=== PATIENT | female | born 1970 | race African-American/Black ===

== ENCOUNTER 2016-10-21 13:50 | Inpatient (IN) | payer OTHER ==
[2016-10-21 15:03] VITALS: BMI 33.5
--- NOTE | 2016-10-21 17:30 | HP ---
Admission ROS [facility] - [facility] Chief Complaint: I WANT TO GO TO REHAB Allergies/Adverse Reactions: Allergies Allergy/AdvReac Type Severity Reaction Status Date / Time No Known Allergies Allergy Verified 10/21/16 15:53 History of Present Illness: 45 YEARS OLD FEMALE WITH LONG HISTORY OF HEROIN DEPENDENCE, HAS ASTHMA BIPOLAR HYPOTHYROID AND DIABETES II IS ADMITTED TO REHAB Exam Limitations: No Limitations - Ebola screening Have you traveled outside of the country in the last 21 days: No (N) Have you had contact with anyone from an Ebola affected area: No Have you been sick,other than usual withdrawal symptoms: No Do you have a fever: No - Review of Systems Constitutional: No Symptoms Reported EENT: reports: Other (EYE GLASSES) Respiratory: reports: Cough, SOB with Exertion, Other (ASTHMA ATTACK 10/20/16 TREATED AT [facility]) Cardiac: reports: No Symptoms Reported GI: reports: No Symptoms Reported : reports: No Symptoms Reported Musculoskeletal: reports: Back Pain Integumentary: reports: Lesions (HYPOPIGMENTED ON RIGHT GLUTEAL) Neuro: reports: No Symptoms reported Endocrine: reports: Unexplained Weight Gain Hematology: reports: No Symptoms Reported Psychiatric: reports: Judgement Intact, Orientated x3, Anxious, Depressed Other Systems: Reviewed and Negative Patient History - Patient Medical History Hx Anemia: No Hx Asthma: Yes (PT IS ON MDI) Hx Chronic Obstructive Pulmonary Disease (COPD): No Hx Cancer: No Hx Cardiac Disorders: Yes (cardiomyopathy) Hx Congestive Heart Failure: No Hx Hypertension: Yes (ON MEDS.) Hx Hypercholesterolemia: No Hx Pacemaker: No HX Cerebrovascular Accident: No Hx Seizures: No Hx Dementia: No Hx Diabetes: Yes (METFORMIN 500 MG BID) Hx Gastrointestinal Disorders: No Hx Liver Disease: No Hx Genitourinary Disorders: No Hx Sexually Transmitted Disorders: No Hx Renal Disease (ESRD): No Hx Thyroid Disease: Yes (hypothyroidism; synthroid ) Hx Human Immunodeficiency Virus (HIV): No (2012 last tested) Hx Hepatitis C: No Hx Depression: No (AND ANXIETY) Hx Suicide Attempt: No Hx Bipolar Disorder: Yes Hx Schizophrenia: No - Patient Surgical History Past Surgical History: Yes Hx Neurologic Surgery: No Hx Cataract Extraction: No Hx Cardiac Surgery: No Hx Lung Surgery: No Hx Breast Surgery: No Hx Breast Biopsy: No Hx Abdominal Surgery: No Hx Appendectomy: No Hx Cholecystectomy: No Hx Genitourinary Surgery: No Hx Section: Yes (x 3) Hx Orthopedic Surgery: No Hx Hysterectomy: No Anesthesia Reaction: No - PPD History Previous Implant?: Yes Documented Results: Negative w/o proof Implanted On Prior [facility] Admission?: Yes Date: 05/31/15 Results: 0 MM PPD to be Administered?: Yes - Reproductive History Patient is a Female of Child Bearing Age (11 -55 yrs old): Yes Last Menstrual Period: 06/16/16 Patient : No - Smoking Cessation Smoking history: Never smoked Have you smoked in the past 12 months: No Aproximately how many cigarettes per day: 0 If you are a former smoker, when did you quit?: WHEN SHE WAS 14 YRS. OLD Hx Chewing Tobacco Use: No Initiated information on smoking cessation: No - Substance & Tx. History Hx Alcohol Use: No Hx Substance Use: Yes Substance Use Type: Heroin Hx Substance Use Treatment: Yes - Substances Abused Heroin Route: Inhalation Frequency: 1-2 times per week Amount used: 1 BAG Age of first use: 11 Date of Last Use: 10/18/16 Family Disease History - Family Disease History Family Disease History: Respiratory: Father (ALCOHOL IN REMISSION X 30 YRS.), Other: Father Admission Physical Exam S - Vital Signs Vital Signs: Vital Signs - 24 hr 10/21/16 14:59 Temperature 98.2 F Pulse Rate 110 H Respiratory 20 Rate Blood Pressure 120/99 - Physical General Appearance: Yes: No Apparent Distress, Nourished, Appropriately Dressed HEENTM: Yes: Hearing grossly Normal, Normal ENT Inspection, Normocephalic, Normal Voice Respiratory: Yes: Chest Non-Tender, Labored Respiration, No Respiratory Distress , No Accessory Muscle Use, Rhonchi, Wheezing Neck: Yes: Supple, Trachea in good position Breast: Yes: Breasts Symetrical Cardiology: Yes: Regular Rhythm, S1, S2, Tachycardia, Other (CARDIOMYOPATHY) Abdominal: Yes: Non Tender, Soft Genitourinary: Yes: Within Normal Limits Back: Yes: Normal Inspection Musculoskeletal: Yes: full range of Motion, Gait Steady, Back pain Extremities: Yes: Normal Inspection, Normal Range of Motion, Non-Tender Neurological: Yes: Fully Oriented, Alert, Motor Strength 5/5, Normal Mood/Affect , Normal Response Integumentary: Yes: Normal Color, Warm Lymphatic: Yes: Within Normal Limits - Diagnostic (1) Asthma Current Visit: Yes Status: Acute (2) Bipolar II disorder Current Visit: Yes Status: Suspected (3) Essential hypertension Current Visit: Yes Status: Acute Comment: HCTZ 25 MG (4) Opioid dependence with withdrawal Current Visit: Yes Status: Acute (5) Diabetes mellitus type II, non insulin dependent Current Visit: Yes Status: Acute Comment: METFORMIN 500 MG BID (6) Sciatic leg pain Current Visit: Yes Status: Acute Comment: GABAPENTIN 300 MG TID Cleared for Admission [facility] - Detox or Rehab [facility] Level of Care: Observation Bed Claeared for Rehab Admission: Yes [facility] Breath Alcohol Content Breath Alcohol Content: 0 Urine Pregancy Test - Result Urine Test Results: Negative- NO Line Present Urine Drug Screen - Results Drug Screen Negative: No Urine Drug Screen Results: OPI-Opiates, TCA-Tricyclic Antidepress
[2016-10-21] MEDS ORDERED: ACETAMINOPHEN 325 MG TABLET (FP) PO PRN (17:33)
[2016-10-21] MEDS ORDERED: MENTHOL/PHENOL 1 EACH UD MM PRN (17:33)
[2016-10-21] MEDS ORDERED: MAG HYDROX/AL HYDROX/SIMETH 30 ML UNIT-DOSE CUP PO PRN (17:33)
[2016-10-21] MEDS ORDERED: LOPERAMIDE HCL 2 MG CAPSULE PO PRN (17:33)
[2016-10-21] MEDS ORDERED: P-EPHED 60MG/TRIPROLIDI 2.5MG TABLET PO PRN (17:33)
[2016-10-21] MEDS ORDERED: MAGNESIUM CITRATE 300 ML BOTTLE PO PRN (17:33)
[2016-10-21] MEDS ORDERED: guaiFENesin/D-METHORPHAN HB 10 ML UNIT-DOSE CUPS PO PRN (17:33)
[2016-10-21] MEDS ORDERED: MAGNESIUM HYDROX 2400MG/30ML ORAL SUSPENSION 30 ML CUP PO PRN (17:33)
[2016-10-21] MEDS ORDERED: diphenhydrAMINE HCL 50 MG CAPSULE PO PRN (17:33)
[2016-10-21] MEDS ORDERED: ALBUTEROL SO4 2.5/IPRATROPIUM 0.5 INH SOL 3 ML VIAL.NEB. NEB PRN (17:37)
[2016-10-21] MEDS ORDERED: TUBERCULIN PPD 5 TU/0.1ML VIAL ID ONE (18:00)
[2016-10-21] MEDS: predniSONE 20 MG TABLET (UD) PO SCH (19:17)
[2016-10-21] MEDS: ALBUTEROL SO4 6.7 GM HFA INHALER IH PRN (19:31)
[2016-10-21 20:11] LABS: URINE APPEARANCE CLEAR; URINE BILIRUBIN NEGATIVE (NEGATIVE); URINE BLOOD NEGATIVE (NEGATIVE); URINE COLOR YELLOW; URINE GLUCOSE (UA) 1+ (NEGATIVE); URINE KETONE NEGATIVE (NEGATIVE); URINE LEUK ESTERASE NEGATIVE (NEGATIVE); URINE NITRITE NEGATIVE (NEGATIVE); URINE PROTEIN NEGATIVE (NEGATIVE); URINE UROBILINOGEN NEGATIVE E.U./dl (0.2-1.0)
[2016-10-21] MEDS: buPROPion HCL 75 MG TABLET PO SCH (20:58)
[2016-10-21] MEDS: THIAMINE HCL 100 MG TABLET (FP) PO SCH (21:41)
[2016-10-21] MEDS: RANOLAZINE E.R. 500 MG TABLET (FP) PO SCH (21:41)
[2016-10-21] MEDS: traZODone HCL 100 MG TABLET (FP) PO SCH (21:42)
[2016-10-21] MEDS: busPIRone HCL 10 MG TABLET (FP) PO SCH (21:43)
[2016-10-21] MEDS: GABAPENTIN 300 MG CAPSULE (FP) PO SCH (21:44)
[2016-10-21] MEDS: OMEGA-3 ACID ETHYL ESTERS (FATTY-ACIDS) 1 GM CAPSULE (FP) PO SCH (21:44)
[2016-10-22] MEDS ORDERED: LEVOTHYROXINE NA 25 MCG TABLET (FP) ONE (05:53)
[2016-10-22] MEDS ORDERED: LEVOTHYROXINE NA 100 MCG TABLET (FP) ONE (05:53)
[2016-10-22] MEDS: busPIRone HCL 10 MG TABLET (FP) PO SCH ×3 (06:35→21:28)
[2016-10-22] MEDS: GABAPENTIN 300 MG CAPSULE (FP) PO SCH ×3 (06:35→21:28)
[2016-10-22] MEDS: LEVOTHYROXINE 100 MCG, LEVOTHYROXINE 50 MCG PO SCH (06:35)
--- NOTE | 2016-10-22 06:44 | HP ---
Psychiatrist Admission - Data Date of interview: 10/22/16 Admission source: [facility] Identifying data: This is the the third [facility] admission for this 45 years old single Black female, mother of 4 children, unemployed on public assistance, homeless Medical History: Significant for history of Asthma, HTN, DM, Hypothyroidism, Cardiomyopathy, Sciatica and S/P x3 Psychiatric History: Reports that her first psychiatric contact was in the 's while at [facility] for rehab. She was prescribed Zoloft which she took for a few months for depression. In 2000 following the of her youndest sister to brain cancer, she saw a private psychiatrist in the [place], was prescribed medication for depression and took it for less than a year. Later on, she saw a psychiatrist at [place] and was prescribed Lexapro and a sleeping pill which she took for 2 years. After completing rehab on [facility] in March 2014, she was referred to [facility]. There because of a pattern of mmod swing with predominantly depression, she was diagnosed with Bipolar II Disorder and prescribed medications. She is still attending [facility] with Dr Lerner and she is currently on Wellbutrin 150 mg po BID, Buspar 10 mg po TID, Lamictal 75 mg po daily, Seroquel 50 mg daily & 300 mg HS and Trazadone 200 mg po HS. Denies history of previous psychiatric hospitalization or suicidal attempt Physical/Sexual Abuse/Trauma History: Reports no history of physical or sexual abuse, and no history of domestic violence. Identifies sister's , god- brother's (jumped in the river to save a baby) last summer, and a cousin' s three weeks ago shoveling snow, as traumatic loses. Additional Comment: Reports history of multiple arrests including 2 felony convictions. Reports being on probation 2018 Vital Signs: Vital Signs - 24 hr 10/21/16 10/22/16 10/22/16 14:59 00:30 03:30 Temperature 98.2 F Pulse Rate 110 H Respiratory 20 20 18 Rate Blood Pressure 120/99 Allergies/Adverse Reactions: Allergies Allergy/AdvReac Type Severity Reaction Status Date / Time No Known Allergies Allergy Verified 10/21/16 15:53 Date of last physical exam: 10/21/16 Concur with the findings of this exam: Yes - Substance Abuse/Tx History Hx Alcohol Use: No Hx Substance Use: Yes Substance Use Type: Heroin (Sttarted using heroin at age 11, consumes one bag 1- 2 times weekly. Last used on 10/18/16) Hx Substance Use Treatment: Yes (Multiple inpt detox & 2 inpt rehab @ [facility]) - Admission Criteria Previous failed treatment: No Poor recovery environment: Yes Comorbidities: Yes Lacks judgement: Yes Mental Status Exam - Mental Status Exam Alert and Oriented to: Time, Place, Person Cognitive Function: Fair Patient Appearance: Well Groomed Mood: Hopeful, Euthymic Patient Behavior: Cooperative Speech Pattern: Clear Voice Loudness: Normal Thought Process: Intact Thought Disorder: Not Present Hallucinations: Denies Suicidal Ideation: Denies, Past, Plan Homicidal Ideation: Denies Insight/Judgement: Fair Sleep: Fair Appetite: Good Muscle strength/Tone: Normal Gait/Station: Normal Psychiatric Findings - Problem List ([place] 1, 2,3) (1) Opioid dependence with withdrawal Current Visit: Yes Status: Acute (2) Bipolar II disorder Current Visit: Yes Status: Suspected (3) Asthma Current Visit: Yes Status: Acute (4) Diabetes mellitus type II, non insulin dependent Current Visit: Yes Status: Acute Comment: METFORMIN 500 MG BID (5) Essential hypertension Current Visit: Yes Status: Acute Comment: HCTZ 25 MG (6) Sciatic leg pain Current Visit: Yes Status: Acute Comment: GABAPENTIN 300 MG TID (7) Hypothyroid Current Visit: No Status: Chronic - Initial Treatment Plan Initial Treatment Plan: 1) Continue Wellbytrin XL 300 mg po daily, Lamictal 75 mg po daily, Buspar 10 mg po TID, Seroquel 50 mg daily & 300 mg HS and Trazadone 200 mg po HS. 2) Monitor progress
[2016-10-22] MEDS ORDERED: LEVOTHYROXINE NA 150 MCG TABLET PO SCH (07:00)
[2016-10-22] MEDS: metFORMIN HCL 500 MG TABLET (FP) PO SCH ×2 (07:41→16:49)
[2016-10-22] MEDS: buPROPion HCL 75 MG TABLET PO SCH (08:03)
[2016-10-22] MEDS: ASPIRIN 81 MG CHEWABLE TABLETS PO SCH (10:01)
[2016-10-22] MEDS: PRENATAL VITAMINS W/ FOLIC ACID TABLET (FP) PO SCH (10:01)
[2016-10-22] MEDS: QUEtiapine FUMARATE 50 MG TABLET PO SCH (10:01)
[2016-10-22] MEDS: predniSONE 20 MG TABLET (UD) PO SCH (10:01)
[2016-10-22] MEDS: HYDROCHLOROTHIAZIDE 25 MG TABLET (FP) PO SCH (10:01)
[2016-10-22] MEDS: OMEGA-3 ACID ETHYL ESTERS (FATTY-ACIDS) 1 GM CAPSULE (FP) PO SCH ×2 (10:02→21:29)
[2016-10-22] MEDS: lamoTRIgine 25 MG TABLET PO SCH (10:19)
[2016-10-22] MEDS: RANOLAZINE E.R. 500 MG TABLET (FP) PO SCH ×2 (10:20→21:29)
[2016-10-22 10:28] LABS: ALK PHOS 101 U/L (45-117); ANION GAP 6 (8-16); BILIRUBIN,TOTAL 0.3 mg/dL (0.2-1.0); CALCIUM 9.2 mg/dL (8.5-10.1); CO2 30 mmol/L (21-32); CREATININE 0.9 mg/dL (0.55-1.02); GLUCOSE,RANDOM 107 mg/dL (74-106); SGOT/AST 27 U/L (15-37); SGPT/ALT 30 U/L (12-78); TOT PROT 7.8 g/dl (6.4-8.2)
[2016-10-22 10:56] LABS: HIV 1 & 2 AB NEGATIVE; HIV 1 AGp24 NEGATIVE
[2016-10-22 11:09] LABS: MCH 28.4 pg (25.7-33.7); MCHC 31.7 g/dl (32.0-36.0); MEAN CELL VOLUME 89.7 fl (80-96); MEAN PLT VOLUME 8.3 fl (7.5-11.1); PLATELET COUNT 287 K/MM3 (134-434); RDW 14.5 % (11.6-15.6); WHITE BLOOD COUNT 14.4 K/mm3 (4.0-10.0)
[2016-10-22] MEDS ORDERED: PT OWN MED DRAWER 7, Y5N ONE (13:17)
[2016-10-22] MEDS ORDERED: busPIRone HCL 10 MG TABLET (FP) PO SCH (14:00)
[2016-10-22] MEDS: FLUTICASONE IN SCH ×2 (16:49→21:27)
[2016-10-22] MEDS: SALMETEROL IN SCH ×2 (16:49→21:27)
[2016-10-22] MEDS: traZODone HCL 100 MG TABLET (FP) PO SCH (21:28)
[2016-10-22] MEDS: THIAMINE HCL 100 MG TABLET (FP) PO SCH (21:28)
[2016-10-22] MEDS ORDERED: traZODone HCL 100 MG TABLET (FP) PO SCH (22:00)
[2016-10-22] MEDS ORDERED: QUEtiapine FUMARATE 300 MG TABLET PO SCH (22:00)
[2016-10-23] MEDS ORDERED: LEVOTHYROXINE NA 25 MCG TABLET (FP) ONE (03:36)
[2016-10-23] MEDS ORDERED: LEVOTHYROXINE NA 100 MCG TABLET (FP) ONE (03:37)
[2016-10-23] MEDS: LEVOTHYROXINE 100 MCG, LEVOTHYROXINE 50 MCG PO SCH (06:41)
[2016-10-23] MEDS: busPIRone HCL 10 MG TABLET (FP) PO SCH ×3 (06:41→21:35)
[2016-10-23] MEDS: GABAPENTIN 300 MG CAPSULE (FP) PO SCH ×3 (06:41→21:36)
[2016-10-23] MEDS: metFORMIN HCL 500 MG TABLET (FP) PO SCH ×2 (07:38→16:56)
[2016-10-23] MEDS ORDERED: QUEtiapine FUMARATE 50 MG TABLET PO SCH (10:00)
[2016-10-23] MEDS ORDERED: lamoTRIgine 25 MG TABLET PO SCH (10:00)
--- NOTE | 2016-10-23 10:34 | EKG ---
Test Reason : Blood Pressure : / mmHG Vent. Rate : 088 BPM Atrial Rate : 088 BPM P-R Int : 192 ms QRS Dur : 094 ms QT Int : 370 ms P-R-T Axes : 072 026 029 degrees QTc Int : 447 ms NORMAL SINUS RHYTHM INCOMPLETE RIGHT BUNDLE BRANCH BLOCK NONSPECIFIC T WAVE ABNORMALITY ABNORMAL ECG WHEN COMPARED WITH ECG OF 12-NOV-2003 00:38, NONSPECIFIC T WAVE ABNORMALITY, IMPROVED IN ANTERIOR LEADS Confirmed by DOE SINGH, RUI ([id number]) on 10/23/2016 10:34:13 AM Referred By: Nevin Rodrigez Confirmed By:RUI AZAR MD
[2016-10-23] MEDS: RANOLAZINE E.R. 500 MG TABLET (FP) PO SCH ×2 (10:39→21:36)
[2016-10-23] MEDS: OMEGA-3 ACID ETHYL ESTERS (FATTY-ACIDS) 1 GM CAPSULE (FP) PO SCH ×2 (10:39→21:37)
[2016-10-23] MEDS: PRENATAL VITAMINS W/ FOLIC ACID TABLET (FP) PO SCH (10:39)
[2016-10-23] MEDS: ASPIRIN 81 MG CHEWABLE TABLETS PO SCH (10:40)
[2016-10-23] MEDS: QUEtiapine FUMARATE 50 MG TABLET PO SCH (10:40)
[2016-10-23] MEDS: lamoTRIgine 25 MG TABLET PO SCH (10:40)
[2016-10-23] MEDS: predniSONE 20 MG TABLET (UD) PO SCH (10:40)
[2016-10-23] MEDS: HYDROCHLOROTHIAZIDE 25 MG TABLET (FP) PO SCH (10:40)
[2016-10-23] MEDS: SALMETEROL IN SCH ×2 (10:41→21:37)
[2016-10-23] MEDS: FLUTICASONE IN SCH ×2 (10:41→21:37)
[2016-10-23] MEDS: THIAMINE HCL 100 MG TABLET (FP) PO SCH (21:36)
[2016-10-23] MEDS: traZODone HCL 100 MG TABLET (FP) PO SCH (21:36)
[2016-10-24] MEDS ORDERED: LEVOTHYROXINE NA 25 MCG TABLET (FP) ONE (03:50)
[2016-10-24] MEDS ORDERED: LEVOTHYROXINE NA 100 MCG TABLET (FP) ONE (03:50)
[2016-10-24] MEDS: busPIRone HCL 10 MG TABLET (FP) PO SCH ×3 (06:19→21:10)
[2016-10-24] MEDS: LEVOTHYROXINE 100 MCG, LEVOTHYROXINE 50 MCG PO SCH (06:19)
[2016-10-24] MEDS: GABAPENTIN 300 MG CAPSULE (FP) PO SCH ×3 (06:19→21:11)
[2016-10-24] MEDS: metFORMIN HCL 500 MG TABLET (FP) PO SCH ×2 (07:28→16:53)
[2016-10-24] MEDS: PRENATAL VITAMINS W/ FOLIC ACID TABLET (FP) PO SCH (10:21)
[2016-10-24] MEDS: QUEtiapine FUMARATE 50 MG TABLET PO SCH (10:21)
[2016-10-24] MEDS: lamoTRIgine 25 MG TABLET PO SCH (10:21)
[2016-10-24] MEDS: SALMETEROL IN SCH ×2 (10:22→21:11)
[2016-10-24] MEDS: FLUTICASONE IN SCH ×2 (10:22→21:11)
[2016-10-24] MEDS: RANOLAZINE E.R. 500 MG TABLET (FP) PO SCH ×2 (10:23→21:11)
[2016-10-24] MEDS: predniSONE 20 MG TABLET (UD) PO SCH (10:23)
[2016-10-24] MEDS: ASPIRIN 81 MG CHEWABLE TABLETS PO SCH (10:23)
[2016-10-24] MEDS: HYDROCHLOROTHIAZIDE 25 MG TABLET (FP) PO SCH (10:23)
[2016-10-24] MEDS: OMEGA-3 ACID ETHYL ESTERS (FATTY-ACIDS) 1 GM CAPSULE (FP) PO SCH ×2 (10:24→21:11)
[2016-10-24] MEDS: THIAMINE HCL 100 MG TABLET (FP) PO SCH (21:10)
[2016-10-24] MEDS: traZODone HCL 100 MG TABLET (FP) PO SCH (21:10)
[2016-10-25] MEDS ORDERED: LEVOTHYROXINE NA 25 MCG TABLET (FP) ONE (05:07)
[2016-10-25] MEDS ORDERED: LEVOTHYROXINE NA 100 MCG TABLET (FP) ONE (05:08)
[2016-10-25] MEDS: LEVOTHYROXINE 100 MCG, LEVOTHYROXINE 50 MCG PO SCH (06:54)
[2016-10-25] MEDS: busPIRone HCL 10 MG TABLET (FP) PO SCH (06:54)
[2016-10-25] MEDS: GABAPENTIN 300 MG CAPSULE (FP) PO SCH ×3 (06:55→21:17)
[2016-10-25] MEDS: metFORMIN HCL 500 MG TABLET (FP) PO SCH ×3 (06:55→17:02)
[2016-10-25] MEDS: HYDROCHLOROTHIAZIDE 25 MG TABLET (FP) PO SCH (09:48)
[2016-10-25] MEDS: PRENATAL VITAMINS W/ FOLIC ACID TABLET (FP) PO SCH (09:48)
[2016-10-25] MEDS: QUEtiapine FUMARATE 50 MG TABLET PO SCH (09:48)
[2016-10-25] MEDS: lamoTRIgine 25 MG TABLET PO SCH (09:49)
[2016-10-25] MEDS: ASPIRIN 81 MG CHEWABLE TABLETS PO SCH (09:49)
[2016-10-25] MEDS: OMEGA-3 ACID ETHYL ESTERS (FATTY-ACIDS) 1 GM CAPSULE (FP) PO SCH ×2 (09:49→21:16)
[2016-10-25] MEDS: SALMETEROL IN SCH ×2 (09:50→21:15)
[2016-10-25] MEDS: FLUTICASONE IN SCH ×2 (09:50→21:15)
[2016-10-25] MEDS: RANOLAZINE E.R. 500 MG TABLET (FP) PO SCH ×2 (09:50→21:16)
[2016-10-25] MEDS: predniSONE 20 MG TABLET (UD) PO SCH (10:01)
[2016-10-25] MEDS: hydrOXYzine PAMOATE 50 MG CAPSULE (FP) PO PRN ×2 (14:17→19:31)
--- NOTE | 2016-10-25 14:41 | PN ---
Psychiatric Progress Note Vital Signs: Vital Signs Period Temp Pulse Resp BP Sys/Hunter Pulse Ox Last 24 Hr 98.8 F 93-99 18-18 109-110/71-73 Date of Session: 10/25/16 Chief Complaint:: Anxiety HPI: Patient addressing Opoid Dependence comorbid with Bipolar II Disorder ROS: Asthma, DM, HTN, Hypothyroid, Sciatica Current Medications: Active Medications Generic Name Dose Route Start Last Admin Trade Name Freq PRN Reason Stop Dose Admin Acetaminophen 650 mg 10/21/16 17:33 Tylenol - PO Q4H PRN PAIN Al Hydroxide/Mg Hydroxide 30 ml 10/21/16 17:33 Mylanta Oral Suspension - PO Q6H PRN DYSPEPSIA Albuterol Sulfate 2 puff 10/21/16 17:37 10/21/16 19:31 Ventolin Hfa Inhaler - IH 2 puff Q4H PRN Administration SHORT OF BREATH/WHEEZING Albuterol/Ipratropium 1 amp 10/21/16 17:37 Duoneb - NEB Q6H PRN SHORTNESS OF BREATH Aspirin 81 mg 10/22/16 10:00 10/25/16 09:49 Asa - PO 81 mg DAILY ERUM Administration Bupropion HCl 300 mg 10/23/16 10:00 10/25/16 09:48 Wellbutrin Xl - PO 300 mg DAILY ERUM Administration Buspirone HCl 15 mg 10/25/16 14:00 10/25/16 14:16 Buspar - PO 15 mg TID ERUM Administration Diphenhydramine HCl 50 mg 10/21/16 17:33 Benadryl - PO HSMR1 PRN INSOMNIA Eucalyptus/Menthol/Phenol/Sorbitol 1 each 10/21/16 17:33 Cepastat Lozenge - MM Q4H PRN SORE THROAT Gabapentin 300 mg 10/21/16 22:00 10/25/16 14:16 Neurontin - PO 300 mg TID ERUM Administration Guaifenesin 10 ml 10/21/16 17:33 Robitussin Dm - PO Q6H PRN COUGH Hydrochlorothiazide 25 mg 10/22/16 10:00 10/25/16 09:48 Hctz - PO 25 mg DAILY ERUM Administration Hydroxyzine Pamoate 50 mg 10/21/16 17:33 10/25/16 14:17 Vistaril - PO 50 mg Q4H PRN Administration AGITATION Lamotrigine 75 mg 10/22/16 10:00 10/25/16 09:49 Lamictal - PO 75 mg DAILY ERUM Administration Levothyroxine Sodium 100 mcg/ 150 mcg 10/22/16 07:00 10/25/16 06:54 Levothyroxine Sodium 50 mcg PO 150 mcg DAILY@0700 ERUM Administration Loperamide HCl 4 mg 10/21/16 17:33 Imodium - PO Q6H PRN DIARRHEA Magnesium Citrate 300 ml 10/21/16 17:33 Citroma - PO Q48H PRN CONSTIPATION Magnesium Hydroxide 30 ml 10/21/16 17:33 Milk Of Magnesia - PO DAILY PRN CONSTIPATION Metformin HCl 500 mg 10/22/16 07:00 10/25/16 06:55 Glucophage - PO 500 mg BID@0700,1630 ERUM Administration Patient's Own 1 puff 10/21/16 22:00 10/25/16 09:50 Medication (Non- IN Not Given Formulary) ( BID ERUM Fluticasone/ Salmeterol [Advair] 115/21 [id number] Ethyl Esters 2 gm 10/21/16 22:00 10/25/16 09:49 Lovaza - PO 2 gm BID ERUM Administration Prednisone 40 mg 10/21/16 18:15 10/25/16 10:01 Deltasone - PO 10/25/16 18:14 40 mg DAILY ERUM Administration Multivit/Folic Acid/Iron 1 tab 10/22/16 10:00 10/25/16 09:48 Vitamins (Sjr) - PO 1 tab DAILY ERUM Administration Pseudoephedrine/Triprolidine 1 combo 10/21/16 17:33 Actifed - PO TID PRN NASAL CONGESTION Quetiapine Fumarate 300 mg 10/21/16 20:30 10/24/16 22:51 Seroquel Xr - PO 300 mg HS@2000 ERUM Administration Quetiapine Fumarate 50 mg 10/22/16 10:00 10/25/16 09:48 Seroquel - PO 50 mg DAILY ERUM Administration Ranolazine 500 mg 10/21/16 22:00 10/25/16 09:50 Ranexa - PO 500 mg BID ERUM Administration Thiamine HCl 100 mg 10/21/16 22:00 10/24/16 21:10 Vitamin B1 - PO 100 mg HS ERUM Administration Trazodone HCl 200 mg 10/21/16 22:00 10/24/16 21:10 Desyrel - PO 200 mg HS ERUM Administration Medication(s) Change(s): Increase Buspar 15 mg po TID Current Side Effect: No Lab tests ordered: No Lab tests reviewed: Yes Provider note:: Patient reports that she has been feeling anxious despite being on Buspar 10 mg po TID, Seroquel 50 mg daily & 300 mg HS, Trazadone 200 mg po HS in addition to Wellbutrin XL 300 mg po daily and Lamictal 75 mg po daily. She requests to increase Buspar dosage to 15 mg po TID Total face to face time:: 25 Mental Status Exam - Mental Status Exam Alert and Oriented to: Time, Place, Person Cognitive Function: Fair Patient Appearance: Well Groomed Mood: Anxious Affect: Appropriate Patient Behavior: Cooperative Speech Pattern: Clear Voice Loudness: Normal Thought Process: Intact Thought Disorder: Not Present Hallucinations: Denies Suicidal Ideation: Denies Homicidal Ideation: Denies Insight/Judgement: Fair Sleep: Fair Appetite: Good Muscle strength/Tone: Normal Gait/Station: Normal Psychiatric Treatment Plan - Problem List (1) Opioid dependence with withdrawal Current Visit: Yes (2) Bipolar II disorder Current Visit: Yes (3) Asthma Current Visit: Yes (4) Diabetes mellitus type II, non insulin dependent Current Visit: Yes Comment: METFORMIN 500 MG BID (5) Essential hypertension Current Visit: Yes Comment: HCTZ 25 MG (6) Sciatic leg pain Current Visit: Yes Comment: GABAPENTIN 300 MG TID (7) Hypothyroid Current Visit: No Initial treatment plan: 1) Discontinue Buspar 10 mg po TID. 2) Start Buspar 15 mg po TID. 3) Monitor progress
[2016-10-25] MEDS ORDERED: INSULIN (NOVOLOG) ASPART 100 UNITS/ML 10ML VIAL SQ ONE (17:25)
[2016-10-25] MEDS ORDERED: INSULIN (NOVOLOG) ASPART 100 UNITS/ML 10ML VIAL ONE (17:40)
[2016-10-25] MEDS: traZODone HCL 100 MG TABLET (FP) PO SCH (21:16)
[2016-10-25] MEDS: THIAMINE HCL 100 MG TABLET (FP) PO SCH (21:17)
[2016-10-26] MEDS ORDERED: LEVOTHYROXINE NA 25 MCG TABLET (FP) ONE (04:11)
[2016-10-26] MEDS ORDERED: LEVOTHYROXINE NA 100 MCG TABLET (FP) ONE (04:11)
[2016-10-26] MEDS: GABAPENTIN 300 MG CAPSULE (FP) PO SCH ×2 (06:18→14:08)
[2016-10-26] MEDS: LEVOTHYROXINE 100 MCG, LEVOTHYROXINE 50 MCG PO SCH (06:18)
[2016-10-26] MEDS: hydrOXYzine PAMOATE 50 MG CAPSULE (FP) PO PRN ×2 (06:39→14:08)
[2016-10-26] MEDS: metFORMIN HCL 500 MG TABLET (FP) PO SCH ×2 (07:20→21:31)
[2016-10-26] MEDS: lamoTRIgine 25 MG TABLET PO SCH (09:48)
[2016-10-26] MEDS: PRENATAL VITAMINS W/ FOLIC ACID TABLET (FP) PO SCH (09:48)
[2016-10-26] MEDS: RANOLAZINE E.R. 500 MG TABLET (FP) PO SCH ×2 (09:48→21:30)
[2016-10-26] MEDS: ASPIRIN 81 MG CHEWABLE TABLETS PO SCH (09:48)
[2016-10-26] MEDS: QUEtiapine FUMARATE 50 MG TABLET PO SCH (09:48)
[2016-10-26] MEDS: FLUTICASONE IN SCH ×2 (09:49→21:29)
[2016-10-26] MEDS: OMEGA-3 ACID ETHYL ESTERS (FATTY-ACIDS) 1 GM CAPSULE (FP) PO SCH ×2 (09:49→21:29)
[2016-10-26] MEDS: SALMETEROL IN SCH ×2 (09:49→21:29)
[2016-10-26] MEDS: HYDROCHLOROTHIAZIDE 25 MG TABLET (FP) PO SCH (09:49)
[2016-10-26] MEDS: traZODone HCL 100 MG TABLET (FP) PO SCH (21:29)
[2016-10-26] MEDS: GABAPENTIN 400 MG CAPSULE (FP) PO SCH (21:30)
[2016-10-26] MEDS: THIAMINE HCL 100 MG TABLET (FP) PO SCH (21:31)
[2016-10-27] MEDS ORDERED: LEVOTHYROXINE NA 100 MCG TABLET (FP) ONE (06:04)
[2016-10-27] MEDS ORDERED: LEVOTHYROXINE NA 25 MCG TABLET (FP) ONE (06:04)
[2016-10-27] MEDS: GABAPENTIN 400 MG CAPSULE (FP) PO SCH ×3 (06:11→21:06)
[2016-10-27] MEDS: LEVOTHYROXINE 100 MCG, LEVOTHYROXINE 50 MCG PO SCH (06:11)
[2016-10-27] MEDS: metFORMIN HCL 500 MG TABLET (FP) PO SCH ×2 (07:22→16:55)
[2016-10-27] MEDS: hydrOXYzine PAMOATE 50 MG CAPSULE (FP) PO PRN ×2 (08:49→13:59)
[2016-10-27] MEDS: PRENATAL VITAMINS W/ FOLIC ACID TABLET (FP) PO SCH (09:51)
[2016-10-27] MEDS: ASPIRIN 81 MG CHEWABLE TABLETS PO SCH (09:51)
[2016-10-27] MEDS: QUEtiapine FUMARATE 50 MG TABLET PO SCH (09:51)
[2016-10-27] MEDS: HYDROCHLOROTHIAZIDE 25 MG TABLET (FP) PO SCH (09:51)
[2016-10-27] MEDS: lamoTRIgine 25 MG TABLET PO SCH (09:52)
[2016-10-27] MEDS: OMEGA-3 ACID ETHYL ESTERS (FATTY-ACIDS) 1 GM CAPSULE (FP) PO SCH ×2 (09:54→21:08)
[2016-10-27] MEDS: RANOLAZINE E.R. 500 MG TABLET (FP) PO SCH ×2 (09:55→21:06)
[2016-10-27] MEDS: SALMETEROL IN SCH ×2 (09:55→21:07)
[2016-10-27] MEDS: FLUTICASONE IN SCH ×2 (09:55→21:07)
[2016-10-27] MEDS: THIAMINE HCL 100 MG TABLET (FP) PO SCH (21:06)
[2016-10-27] MEDS: traZODone HCL 100 MG TABLET (FP) PO SCH (21:06)
[2016-10-28] MEDS: LEVOTHYROXINE 100 MCG, LEVOTHYROXINE 50 MCG PO SCH (06:20)
[2016-10-28] MEDS: GABAPENTIN 400 MG CAPSULE (FP) PO SCH ×3 (06:20→21:06)
[2016-10-28] MEDS: hydrOXYzine PAMOATE 50 MG CAPSULE (FP) PO PRN ×3 (06:43→20:08)
[2016-10-28] MEDS: metFORMIN HCL 500 MG TABLET (FP) PO SCH ×2 (07:22→17:02)
[2016-10-28] MEDS: PRENATAL VITAMINS W/ FOLIC ACID TABLET (FP) PO SCH (09:40)
[2016-10-28] MEDS: QUEtiapine FUMARATE 50 MG TABLET PO SCH (09:40)
[2016-10-28] MEDS: lamoTRIgine 25 MG TABLET PO SCH (09:40)
[2016-10-28] MEDS: ASPIRIN 81 MG CHEWABLE TABLETS PO SCH (09:40)
[2016-10-28] MEDS: HYDROCHLOROTHIAZIDE 25 MG TABLET (FP) PO SCH (09:40)
[2016-10-28] MEDS: OMEGA-3 ACID ETHYL ESTERS (FATTY-ACIDS) 1 GM CAPSULE (FP) PO SCH ×2 (09:41→21:05)
[2016-10-28] MEDS: FLUTICASONE IN SCH ×2 (09:41→21:04)
[2016-10-28] MEDS: RANOLAZINE E.R. 500 MG TABLET (FP) PO SCH ×2 (09:41→21:04)
[2016-10-28] MEDS: SALMETEROL IN SCH ×2 (09:41→21:04)
[2016-10-28] MEDS: traZODone HCL 100 MG TABLET (FP) PO SCH (21:05)
[2016-10-28] MEDS: THIAMINE HCL 100 MG TABLET (FP) PO SCH (21:07)
[2016-10-29] MEDS ORDERED: LEVOTHYROXINE NA 100 MCG TABLET (FP) ONE (06:05)
[2016-10-29] MEDS ORDERED: LEVOTHYROXINE NA 25 MCG TABLET (FP) ONE (06:05)
[2016-10-29] MEDS: GABAPENTIN 400 MG CAPSULE (FP) PO SCH ×3 (06:31→21:26)
[2016-10-29] MEDS: LEVOTHYROXINE 100 MCG, LEVOTHYROXINE 50 MCG PO SCH (06:31)
[2016-10-29] MEDS: hydrOXYzine PAMOATE 50 MG CAPSULE (FP) PO PRN ×2 (06:32→14:30)
[2016-10-29] MEDS: metFORMIN HCL 500 MG TABLET (FP) PO SCH ×2 (06:34→16:54)
[2016-10-29] MEDS: HYDROCHLOROTHIAZIDE 25 MG TABLET (FP) PO SCH (10:15)
[2016-10-29] MEDS: FLUTICASONE IN SCH ×2 (10:15→21:26)
[2016-10-29] MEDS: SALMETEROL IN SCH ×2 (10:15→21:26)
[2016-10-29] MEDS: QUEtiapine FUMARATE 50 MG TABLET PO SCH (10:16)
[2016-10-29] MEDS: OMEGA-3 ACID ETHYL ESTERS (FATTY-ACIDS) 1 GM CAPSULE (FP) PO SCH ×2 (10:16→21:27)
[2016-10-29] MEDS: RANOLAZINE E.R. 500 MG TABLET (FP) PO SCH ×2 (10:16→21:27)
[2016-10-29] MEDS: lamoTRIgine 25 MG TABLET PO SCH (10:16)
[2016-10-29] MEDS: ASPIRIN 81 MG CHEWABLE TABLETS PO SCH (10:16)
[2016-10-29] MEDS: PRENATAL VITAMINS W/ FOLIC ACID TABLET (FP) PO SCH (10:16)
[2016-10-29] MEDS: traZODone HCL 100 MG TABLET (FP) PO SCH (21:26)
[2016-10-29] MEDS: THIAMINE HCL 100 MG TABLET (FP) PO SCH (21:27)
[2016-10-30] MEDS ORDERED: LEVOTHYROXINE NA 25 MCG TABLET (FP) ONE (05:51)
[2016-10-30] MEDS ORDERED: LEVOTHYROXINE NA 100 MCG TABLET (FP) ONE (05:51)
[2016-10-30] MEDS: LEVOTHYROXINE 100 MCG, LEVOTHYROXINE 50 MCG PO SCH (06:48)
[2016-10-30] MEDS: metFORMIN HCL 500 MG TABLET (FP) PO SCH ×2 (06:48→20:53)
[2016-10-30] MEDS: GABAPENTIN 400 MG CAPSULE (FP) PO SCH ×3 (06:48→21:14)
[2016-10-30] MEDS: hydrOXYzine PAMOATE 50 MG CAPSULE (FP) PO PRN ×2 (08:41→14:07)
[2016-10-30] MEDS: PRENATAL VITAMINS W/ FOLIC ACID TABLET (FP) PO SCH (09:44)
[2016-10-30] MEDS: QUEtiapine FUMARATE 50 MG TABLET PO SCH (09:44)
[2016-10-30] MEDS: ASPIRIN 81 MG CHEWABLE TABLETS PO SCH (09:44)
[2016-10-30] MEDS: HYDROCHLOROTHIAZIDE 25 MG TABLET (FP) PO SCH (09:44)
[2016-10-30] MEDS: SALMETEROL IN SCH ×2 (09:44→21:12)
[2016-10-30] MEDS: FLUTICASONE IN SCH ×2 (09:44→21:12)
[2016-10-30] MEDS: lamoTRIgine 25 MG TABLET PO SCH (09:44)
[2016-10-30] MEDS: OMEGA-3 ACID ETHYL ESTERS (FATTY-ACIDS) 1 GM CAPSULE (FP) PO SCH ×2 (09:46→21:12)
[2016-10-30] MEDS: RANOLAZINE E.R. 500 MG TABLET (FP) PO SCH ×2 (09:48→21:13)
[2016-10-30] MEDS: traZODone HCL 100 MG TABLET (FP) PO SCH (21:13)
[2016-10-30] MEDS: THIAMINE HCL 100 MG TABLET (FP) PO SCH (21:14)
[2016-10-31] MEDS ORDERED: LEVOTHYROXINE NA 100 MCG TABLET (FP) ONE (04:53)
[2016-10-31] MEDS ORDERED: LEVOTHYROXINE NA 25 MCG TABLET (FP) ONE (04:53)
[2016-10-31] MEDS: hydrOXYzine PAMOATE 50 MG CAPSULE (FP) PO PRN ×2 (06:34→13:54)
[2016-10-31] MEDS: LEVOTHYROXINE 100 MCG, LEVOTHYROXINE 50 MCG PO SCH (06:34)
[2016-10-31] MEDS: GABAPENTIN 400 MG CAPSULE (FP) PO SCH ×3 (06:34→21:20)
[2016-10-31] MEDS: metFORMIN HCL 500 MG TABLET (FP) PO SCH ×2 (06:35→22:57)
[2016-10-31] MEDS: QUEtiapine FUMARATE 50 MG TABLET PO SCH (10:06)
[2016-10-31] MEDS: PRENATAL VITAMINS W/ FOLIC ACID TABLET (FP) PO SCH (10:06)
[2016-10-31] MEDS: OMEGA-3 ACID ETHYL ESTERS (FATTY-ACIDS) 1 GM CAPSULE (FP) PO SCH ×2 (10:06→21:19)
[2016-10-31] MEDS: RANOLAZINE E.R. 500 MG TABLET (FP) PO SCH ×2 (10:06→21:19)
[2016-10-31] MEDS: SALMETEROL IN SCH ×2 (10:06→21:19)
[2016-10-31] MEDS: FLUTICASONE IN SCH ×2 (10:06→21:19)
[2016-10-31] MEDS: lamoTRIgine 25 MG TABLET PO SCH (10:06)
[2016-10-31] MEDS: HYDROCHLOROTHIAZIDE 25 MG TABLET (FP) PO SCH (10:06)
[2016-10-31] MEDS: ASPIRIN 81 MG CHEWABLE TABLETS PO SCH (10:06)
[2016-10-31] MEDS: ALBUTEROL SO4 6.7 GM HFA INHALER IH PRN (10:07)
[2016-10-31] MEDS: traZODone HCL 100 MG TABLET (FP) PO SCH (21:20)
[2016-10-31] MEDS: THIAMINE HCL 100 MG TABLET (FP) PO SCH (21:20)
[2016-11-01] MEDS ORDERED: LEVOTHYROXINE NA 100 MCG TABLET (FP) ONE (05:29)
[2016-11-01] MEDS ORDERED: LEVOTHYROXINE NA 25 MCG TABLET (FP) ONE (05:29)
[2016-11-01] MEDS: LEVOTHYROXINE 100 MCG, LEVOTHYROXINE 50 MCG PO SCH (06:32)
[2016-11-01] MEDS: GABAPENTIN 400 MG CAPSULE (FP) PO SCH ×3 (06:32→21:15)
[2016-11-01] MEDS: hydrOXYzine PAMOATE 50 MG CAPSULE (FP) PO PRN ×2 (06:32→13:25)
[2016-11-01] MEDS: metFORMIN HCL 500 MG TABLET (FP) PO SCH ×2 (06:33→16:50)
[2016-11-01] MEDS: PRENATAL VITAMINS W/ FOLIC ACID TABLET (FP) PO SCH (09:47)
[2016-11-01] MEDS: HYDROCHLOROTHIAZIDE 25 MG TABLET (FP) PO SCH (09:47)
[2016-11-01] MEDS: OMEGA-3 ACID ETHYL ESTERS (FATTY-ACIDS) 1 GM CAPSULE (FP) PO SCH ×2 (09:47→21:17)
[2016-11-01] MEDS: ASPIRIN 81 MG CHEWABLE TABLETS PO SCH (09:47)
[2016-11-01] MEDS: FLUTICASONE IN SCH ×2 (09:47→21:15)
[2016-11-01] MEDS: SALMETEROL IN SCH ×2 (09:47→21:15)
[2016-11-01] MEDS: QUEtiapine FUMARATE 50 MG TABLET PO SCH (09:47)
[2016-11-01] MEDS: RANOLAZINE E.R. 500 MG TABLET (FP) PO SCH ×2 (09:47→21:17)
[2016-11-01] MEDS: lamoTRIgine 25 MG TABLET PO SCH (10:57)
[2016-11-01] MEDS: THIAMINE HCL 100 MG TABLET (FP) PO SCH (21:15)
[2016-11-01] MEDS: traZODone HCL 100 MG TABLET (FP) PO SCH (21:15)
[2016-11-02] MEDS: LEVOTHYROXINE 100 MCG, LEVOTHYROXINE 50 MCG PO SCH (06:06)
[2016-11-02] MEDS: GABAPENTIN 400 MG CAPSULE (FP) PO SCH ×3 (06:06→21:16)
[2016-11-02] MEDS ORDERED: LEVOTHYROXINE NA 100 MCG TABLET (FP) ONE (06:14)
[2016-11-02] MEDS ORDERED: LEVOTHYROXINE NA 25 MCG TABLET (FP) ONE (06:14)
[2016-11-02] MEDS: metFORMIN HCL 500 MG TABLET (FP) PO SCH ×2 (07:02→16:45)
[2016-11-02] MEDS: hydrOXYzine PAMOATE 50 MG CAPSULE (FP) PO PRN ×2 (09:49→14:46)
[2016-11-02] MEDS: lamoTRIgine 25 MG TABLET PO SCH (09:49)
[2016-11-02] MEDS: QUEtiapine FUMARATE 50 MG TABLET PO SCH (09:49)
[2016-11-02] MEDS: SALMETEROL IN SCH ×2 (09:50→21:15)
[2016-11-02] MEDS: ASPIRIN 81 MG CHEWABLE TABLETS PO SCH (09:50)
[2016-11-02] MEDS: OMEGA-3 ACID ETHYL ESTERS (FATTY-ACIDS) 1 GM CAPSULE (FP) PO SCH ×2 (09:50→21:17)
[2016-11-02] MEDS: HYDROCHLOROTHIAZIDE 25 MG TABLET (FP) PO SCH (09:50)
[2016-11-02] MEDS: RANOLAZINE E.R. 500 MG TABLET (FP) PO SCH ×2 (09:50→21:17)
[2016-11-02] MEDS: FLUTICASONE IN SCH ×2 (09:50→21:15)
[2016-11-02] MEDS: PRENATAL VITAMINS W/ FOLIC ACID TABLET (FP) PO SCH (09:50)
[2016-11-02] MEDS: traZODone HCL 100 MG TABLET (FP) PO SCH (21:15)
[2016-11-02] MEDS: THIAMINE HCL 100 MG TABLET (FP) PO SCH (21:17)
[2016-11-03] MEDS ORDERED: LEVOTHYROXINE NA 100 MCG TABLET (FP) ONE (06:11)
[2016-11-03] MEDS ORDERED: LEVOTHYROXINE NA 25 MCG TABLET (FP) ONE (06:11)
[2016-11-03] MEDS: GABAPENTIN 400 MG CAPSULE (FP) PO SCH ×3 (06:32→21:19)
[2016-11-03] MEDS: LEVOTHYROXINE 100 MCG, LEVOTHYROXINE 50 MCG PO SCH (06:32)
[2016-11-03] MEDS: hydrOXYzine PAMOATE 50 MG CAPSULE (FP) PO PRN ×3 (06:33→20:08)
[2016-11-03] MEDS: metFORMIN HCL 500 MG TABLET (FP) PO SCH ×2 (07:19→21:20)
[2016-11-03] MEDS: ASPIRIN 81 MG CHEWABLE TABLETS PO SCH (10:01)
[2016-11-03] MEDS: PRENATAL VITAMINS W/ FOLIC ACID TABLET (FP) PO SCH (10:01)
[2016-11-03] MEDS: lamoTRIgine 25 MG TABLET PO SCH (10:01)
[2016-11-03] MEDS: QUEtiapine FUMARATE 50 MG TABLET PO SCH (10:01)
[2016-11-03] MEDS: HYDROCHLOROTHIAZIDE 25 MG TABLET (FP) PO SCH (10:01)
[2016-11-03] MEDS: OMEGA-3 ACID ETHYL ESTERS (FATTY-ACIDS) 1 GM CAPSULE (FP) PO SCH ×2 (10:02→21:18)
[2016-11-03] MEDS: FLUTICASONE IN SCH ×2 (10:02→21:18)
[2016-11-03] MEDS: SALMETEROL IN SCH ×2 (10:02→21:18)
[2016-11-03] MEDS: RANOLAZINE E.R. 500 MG TABLET (FP) PO SCH ×2 (10:02→21:18)
--- NOTE | 2016-11-03 11:28 | PN ---
Psychiatric Progress Note Vital Signs: Vital Signs Period Temp Pulse Resp BP Sys/Hunter Pulse Ox Last 24 Hr 98.4 F 91-94 18-20 103-130/69-70 Date of Session: 11/03/16 Chief Complaint:: Psychiatrist Discharge Note HPI: Patient addressing Opoid Dependence comorbid with Bipolar II Disorder ROS: Asthma, DM, HTN, Hypothyroid, Sciatica Current Medications: Active Medications Generic Name Dose Route Start Last Admin Trade Name Freq PRN Reason Stop Dose Admin Acetaminophen 650 mg 10/21/16 17:33 Tylenol - PO Q4H PRN PAIN Al Hydroxide/Mg Hydroxide 30 ml 10/21/16 17:33 Mylanta Oral Suspension - PO Q6H PRN DYSPEPSIA Albuterol Sulfate 2 puff 10/21/16 17:37 10/31/16 10:07 Ventolin Hfa Inhaler - IH 2 puff Q4H PRN Administration SHORT OF BREATH/WHEEZING Albuterol/Ipratropium 1 amp 10/21/16 17:37 Duoneb - NEB Q6H PRN SHORTNESS OF BREATH Aspirin 81 mg 10/22/16 10:00 11/03/16 10:01 Asa - PO 81 mg DAILY ERUM Administration Bupropion HCl 300 mg 10/23/16 10:00 11/03/16 10:01 Wellbutrin Xl - PO 300 mg DAILY ERUM Administration Buspirone HCl 15 mg 10/25/16 14:00 11/03/16 06:32 Buspar - PO 15 mg TID ERUM Administration Diphenhydramine HCl 50 mg 10/21/16 17:33 Benadryl - PO HSMR1 PRN INSOMNIA Eucalyptus/Menthol/Phenol/Sorbitol 1 each 10/21/16 17:33 Cepastat Lozenge - MM Q4H PRN SORE THROAT Gabapentin 400 mg 10/26/16 22:00 11/03/16 06:32 Neurontin - PO 400 mg TID ERUM Administration Guaifenesin 10 ml 10/21/16 17:33 Robitussin Dm - PO Q6H PRN COUGH Hydrochlorothiazide 25 mg 10/22/16 10:00 11/03/16 10:01 Hctz - PO 25 mg DAILY ERUM Administration Hydroxyzine Pamoate 50 mg 10/21/16 17:33 11/03/16 06:33 Vistaril - PO 50 mg Q4H PRN Administration AGITATION Lamotrigine 75 mg 10/22/16 10:00 11/03/16 10:01 Lamictal - PO 75 mg DAILY ERUM Administration Levothyroxine Sodium 100 mcg/ 150 mcg 10/22/16 07:00 11/03/16 06:32 Levothyroxine Sodium 50 mcg PO 150 mcg DAILY@0700 ERUM Administration Loperamide HCl 4 mg 10/21/16 17:33 Imodium - PO Q6H PRN DIARRHEA Magnesium Citrate 300 ml 10/21/16 17:33 Citroma - PO Q48H PRN CONSTIPATION Magnesium Hydroxide 30 ml 10/21/16 17:33 11/02/16 09:50 Milk Of Magnesia - PO 30 ml DAILY PRN Administration CONSTIPATION Metformin HCl 500 mg 10/22/16 07:00 11/03/16 07:19 Glucophage - PO 500 mg BID@0700,1630 ERUM Administration Patient's Own 1 puff 10/21/16 22:00 11/03/16 10:02 Medication (Non- IN Not Given Formulary) ( BID ERUM Fluticasone/ Salmeterol [Advair] 115/21 [id number] Ethyl Esters 2 gm 10/21/16 22:00 11/03/16 10:02 Lovaza - PO 2 gm BID ERUM Administration Multivit/Folic Acid/Iron 1 tab 10/22/16 10:00 11/03/16 10:01 Vitamins (Sjr) - PO 1 tab DAILY ERUM Administration Pseudoephedrine/Triprolidine 1 combo 10/21/16 17:33 Actifed - PO TID PRN NASAL CONGESTION Quetiapine Fumarate 300 mg 10/21/16 20:30 11/02/16 20:15 Seroquel Xr - PO 300 mg HS@2000 ERUM Administration Quetiapine Fumarate 50 mg 10/22/16 10:00 11/03/16 10:01 Seroquel - PO 50 mg DAILY ERUM Administration Ranolazine 500 mg 10/21/16 22:00 11/03/16 10:02 Ranexa - PO 500 mg BID ERUM Administration Thiamine HCl 100 mg 10/21/16 22:00 11/02/16 21:17 Vitamin B1 - PO 100 mg HS ERUM Administration Trazodone HCl 200 mg 10/21/16 22:00 11/02/16 21:15 Desyrel - PO 200 mg HS ERUM Administration Current Side Effect: No Lab tests ordered: Yes Lab tests reviewed: Yes Provider note:: Patient will complete this program on 11/04/16.She has met her treatment goals and will continue to address her issues [place] [address]. She verbalized understanding of the negative consequences of her addiction and to apply the tools she has learned in this program in order to maintain abstinence. She responded well to Buspar 15 mg po TID, Wellbutrin XL 300 mg po daily, Lamictal 75 mg po daily, Seroquel 50 mg daily & 300 mg HS. Scripts for 30 days supply of these medications will be electronically transmitted to [facility] at [address] [place] [address]. She is stable for discharge on 11/04/16 Total face to face time:: 35 Mental Status Exam - Mental Status Exam Alert and Oriented to: Time, Place, Person Cognitive Function: Fair Patient Appearance: Well Groomed Mood: Hopeful, Euthymic Affect: Appropriate Patient Behavior: Cooperative Speech Pattern: Clear Voice Loudness: Normal Thought Process: Intact Thought Disorder: Not Present Hallucinations: Denies Suicidal Ideation: Denies Homicidal Ideation: Denies Insight/Judgement: Fair Sleep: Fair Appetite: Good Muscle strength/Tone: Normal Gait/Station: Normal Psychiatric Treatment Plan - Problem List (1) Opioid dependence with withdrawal Current Visit: Yes (2) Bipolar II disorder Current Visit: Yes (3) Asthma Current Visit: Yes (4) Diabetes mellitus type II, non insulin dependent Current Visit: Yes Comment: METFORMIN 500 MG BID (5) Essential hypertension Current Visit: Yes Comment: HCTZ 25 MG (6) Sciatic leg pain Current Visit: Yes Comment: GABAPENTIN 300 MG TID (7) Hypothyroid Current Visit: No Initial treatment plan: Patient will be discharged tomorrow and referred to [facility] for outpatient treatment
[2016-11-03] MEDS: traZODone HCL 100 MG TABLET (FP) PO SCH (21:19)
[2016-11-03] MEDS: THIAMINE HCL 100 MG TABLET (FP) PO SCH (21:20)
[2016-11-04] MEDS ORDERED: LEVOTHYROXINE NA 100 MCG TABLET (FP) ONE (03:31)
[2016-11-04] MEDS ORDERED: LEVOTHYROXINE NA 25 MCG TABLET (FP) ONE (03:31)
[2016-11-04] MEDS: metFORMIN HCL 500 MG TABLET (FP) PO SCH (06:16)
[2016-11-04] MEDS: LEVOTHYROXINE 100 MCG, LEVOTHYROXINE 50 MCG PO SCH (06:16)
[2016-11-04] MEDS: GABAPENTIN 400 MG CAPSULE (FP) PO SCH (06:16)
[2016-11-04] MEDS: hydrOXYzine PAMOATE 50 MG CAPSULE (FP) PO PRN (06:18)
[2016-11-04 06:52] VITALS: TEMP 98.9
[2016-11-04] MEDS: lamoTRIgine 25 MG TABLET PO SCH (09:28)
[2016-11-04] MEDS: QUEtiapine FUMARATE 50 MG TABLET PO SCH (09:28)
[2016-11-04] MEDS: SALMETEROL IN SCH (09:29)
[2016-11-04] MEDS: OMEGA-3 ACID ETHYL ESTERS (FATTY-ACIDS) 1 GM CAPSULE (FP) PO SCH (09:29)
[2016-11-04] MEDS: PRENATAL VITAMINS W/ FOLIC ACID TABLET (FP) PO SCH (09:29)
[2016-11-04] MEDS: RANOLAZINE E.R. 500 MG TABLET (FP) PO SCH (09:29)
[2016-11-04] MEDS: HYDROCHLOROTHIAZIDE 25 MG TABLET (FP) PO SCH (09:29)
[2016-11-04] MEDS: ASPIRIN 81 MG CHEWABLE TABLETS PO SCH (09:29)
[2016-11-04] MEDS: FLUTICASONE IN SCH (09:29)
[2016-11-04 10:21] VITALS: BP 147/89; PULSE 102
== END 2016-11-04 10:42 | disposition home or self-care (01) | DRG 772 ==
LOC: YASAS 13:50 → Y3W 17:03
PROVIDERS: ADMIT Psychiatry & Neurology Psychiatry; ATTEND Psychiatry & Neurology Psychiatry
PROC: HZ42ZZZ Group Counseling for Substance Abuse Treatment, Cognitive-Behavioral (ICD-10-PCS; principal; 2016-10-21)
DX: F11.20 Opioid dependence, uncomplicated (principal); F31.81 Bipolar II disorder; J45.909 Unspecified asthma, uncomplicated; E11.9 Type 2 diabetes mellitus without complications; E03.9 Hypothyroidism, unspecified; I10 Essential (primary) hypertension; I42.9 Cardiomyopathy, unspecified; M54.30 Sciatica, unspecified side
CPT/HCPCS: 36415; 80053; 81003; 85027; 86593; 86803; 87389; 93005; 93010

== ENCOUNTER 2017-06-16 23:00 | Emergency (ER) | payer OTHER ==
[2017-06-16 23:09] VITALS: BP 115/71; PULSE 90; TEMP 98.6; BMI 30.1
[2017-06-16] MEDS ORDERED: KETOROLAC TROMETHAMINE 30 MG/1 ML VIAL IM ONE (23:57)
--- NOTE | 2017-06-16 23:57 | PDOC ---
History of Present Illness - General Chief Complaint: Pain Stated Complaint: PAIN Time Seen by Provider: 06/16/17 23:40 History Source: Patient Exam Limitations: No Limitations - History of Present Illness Initial Comments: 06/16/17 23:56 46yo Female patient w/ PmHx: HTN, DM, Hypothyroidism, Asthma, Depression and Cardiomyopathy presents to ED c/o right thigh pain which began this morning. Patient states last night experiencing "martin horse." She reports having Bunion removal February 22, and one week later fracture her right foot. She is being care for by Dr. Lopez (ortho). She denies any recent falls, injury or any other complaints at this time. LNMP: Post menopausal. Occurred: reports: this morning Severity: reports: moderate Pain Location: reports: lower extremity Modifying Factors: worse with: None, cold therapy, immobilization, pain medication, rest, other Loss of Consciousness: no loss of consciousness Associated Symptoms (Fall): denies symptoms Past History - Travel Traveled outside of the country in the last 30 days: No Close contact w/someone who was outside of country & ill: No - Past Medical History Allergies/Adverse Reactions: Allergies Allergy/AdvReac Type Severity Reaction Status Date / Time No Known Allergies Allergy Verified 06/16/17 23:02 Home Medications: Ambulatory Orders Aspirin [ASA -] 81 mg PO DAILY #30 tab.chew 06/03/15 [place]-3 Acid Ethyl Esters [Lovaza -] 1 gm PO TID #90 cap 06/03/15 Quetiapine Fumarate "Xr" [Seroquel XR] 300 mg PO HS 10/21/16 Albuterol Sulfate Inhaler - [Ventolin HFA Inhaler -] 2 puff IH Q4H PRN #1 inhaler 11/03/16 Bupropion HCl [Wellbutrin Xl -] 300 mg PO DAILY #30 tab.sr.24h 11/03/16 Buspirone HCl [Buspar -] 15 mg PO TID #90 tablet 11/03/16 Fluticasone/Salmeterol [Advair 250-50 Diskus] 1 puff IN BID #1 blst.w.dev Gabapentin [Neurontin -] 400 mg PO TID #90 capsule 11/03/16 Hydrochlorothiazide [Hctz -] 25 mg PO DAILY #30 tablet 11/03/16 Levothyroxine [Synthroid -] 150 mcg PO DAILY@0700 #30 tablet 11/03/16 Metformin HCl [Glucophage -] 500 mg PO BID@0700,1630 #60 tablet 11/03/16 Ranolazine [Ranexa -] 500 mg PO BID #60 tab 11/03/16 Trazodone HCl [Desyrel -] 200 mg PO HS #60 tablet 11/03/16 Liraglutide [Victoza -] 1.8 mg SQ DAILY@0700 06/16/17 Ibuprofen [Motrin -] 600 mg PO QID PRN #28 tablet 06/17/17 Tramadol HCl [Ultram -] 50 mg PO Q6H PRN #8 tablet MDD 4 tabs 06/17/17 Anemia: No Asthma: Yes (PT IS ON MDI) Cancer: No Cardiac Disorders: Yes (cardiomyopathy) CVA: No COPD: No CHF: No Dementia: No Diabetes: Yes GI Disorders: No Disorders: No HTN: Yes Hypercholesterolemia: No Kidney Stones: No Liver Disease: No Suicide Attempt (Hx): No Seizures: No Thyroid Disease: Yes (hypothyroidism; synthroid ) - Surgical History Abdominal Surgery: No Appendectomy: No Cardiac Surgery: No Cholecystectomy: No Lung Surgery: No Neurologic Surgery: No Orthopedic Surgery: No - Reproductive History PID: No - Psycho/Social/Smoking Cessation Hx Anxiety: Yes Suicidal Ideation: No Smoking History: Never smoked Have you smoked in the past 12 months: No Number of Cigarettes Smoked Daily: 0 If you are a former smoker, when did you quit?: WHEN SHE WAS 14 YRS. OLD 'Breaking Loose' booklet given: 12/23/14 Hx Alcohol Use: No Drug/Substance Use Hx: Yes Substance Use Type: Heroin (Sttarted using heroin at age 11, consumes one bag 1- 2 times weekly. Last used on 10/18/16) Hx Substance Use Treatment: Yes (Multiple inpt detox & 2 inpt rehab @ [facility]) Trauma Specific PMHX - Complaint Specific PMHX Arthritis: No Back Injury: No Neck Injury: No Hx Sacro Iliac Joint Dysfunction: No Review of Systems - Review of Systems Able to Perform ROS?: Yes Is the patient limited [place] proficient: No Constitutional: No: Chills, Fever Musculoskeletal: Yes: Other (Leg Pain) All Other Systems: Reviewed and Negative *Physical Exam - Vital Signs Last Vital Signs Temp Pulse Resp BP Pulse Ox 98.6 F 90 18 115/71 96 06/16/17 23:08 06/16/17 23:08 06/16/17 23:08 06/16/17 23:08 06/16/17 23:08 - Physical Exam General Appearance: Yes: Nourished, Appropriately Dressed. No: Apparent Distress, Mild Distress, Moderate Distress, Severe Distress Respiratory/Chest: positive: Lungs Clear, Normal Breath Sounds. negative: Chest Tender, Respiratory Distress, Accessory Muscle Use, Labored Respiration, Rapid RR, Rhonchi, Stridor, Wheezing, Hyperresonant Cardiovascular: positive: Regular Rhythm, Regular Rate Gastrointestinal/Abdominal: positive: Normal Bowel Sounds, Soft. negative: Distended, Guarding, Rebound, Tenderness Musculoskeletal: positive: Normal Inspection. negative: CVA Tenderness Extremity: positive: Normal Capillary Refill, Normal Inspection, Normal Range of Motion. negative: Pedal Edema, Swelling, Calf Tenderness, Erythema, Inflammation Integumentary: positive: Normal Color, Dry, Warm Neurologic: positive: ruby developer II-XII NML intact, Fully Oriented, Alert, Normal Mood/ Affect, Normal Response, Motor Strength / ED Treatment Course - LABORATORY CBC & Chemistry Diagram: 06/17/17 00:01 06/17/17 00:01 *DC/Admit/Observation/Transfer Diagnosis at time of Disposition: Pain of right lower extremity - Discharge Dispostion Disposition: HOME Condition at time of disposition: Good Admit: No - Prescriptions Prescriptions: Ibuprofen [Motrin -] 600 mg PO QID PRN #28 tablet PRN Reason: Mild Pain Tramadol HCl [Ultram -] 50 mg PO Q6H PRN #8 tablet MDD 4 tabs PRN Reason: Severe Pain - Patient Instructions Printed Discharge Instructions: DI for Leg Pain Additional Instructions: FOLLOW UP WITH YOUR PRIMARY CARE PROVIDER AND ORTHOPEDIST THIS WEEK. CALL TO SCHEDULE APPOINTMENT. TAKE MEDICATIONS PRESCRIBED. DO NOT DRIVE, DRINK ALCOHOL, OR OPERATE HEAVY MACHINERY WHILE TAKING TRAMADOL. DRINK PLENTY WATER. Print Language: DANISH
--- NOTE | 2017-06-17 00:02 | PDOC ---
*Physical Exam - Vital Signs Last Vital Signs Temp Pulse Resp BP Pulse Ox 98.6 F 90 18 115/71 96 06/16/17 23:08 06/16/17 23:08 06/16/17 23:08 06/16/17 23:08 06/16/17 23:08 Medical Decision Making - Medical Decision Making 06/17/17 00:02 agree with care from [facility] Burton
[2017-06-17] MEDS ORDERED: KETOROLAC TROMETHAMINE 30 MG/1 ML VIAL ONE (00:08)
[2017-06-17 00:22] LABS: BASOPHIL 0.6 % (0-2.0); EOSINOPHIL 10.3 % (0-4.5); MCH 28.2 pg (25.7-33.7); MCHC 32.6 g/dl (32.0-36.0); MEAN CELL VOLUME 86.5 fl (80-96); MEAN PLT VOLUME 7.7 fl (7.5-11.1); NEUTROPHILS 50.9 % (42.8-82.8); PLATELET COUNT 267 K/MM3 (134-434); RDW 14.5 % (11.6-15.6); WHITE BLOOD COUNT 5.8 K/mm3 (4.0-10.0)
[2017-06-17 01:00] LABS: ALBUMIN 3.5 g/dl (3.4-5.0); ALK PHOS 81 U/L (45-117); ANION GAP 5 (8-16); BILIRUBIN,TOTAL 0.2 mg/dL (0.2-1.0); CALCIUM 8.8 mg/dL (8.5-10.1); CO2 34 mmol/L (21-32); CREATININE 0.8 mg/dL (0.55-1.02); GLUCOSE,RANDOM 73 mg/dL (74-106); SGOT/AST 42 U/L (15-37); SGPT/ALT 25 U/L (12-78); TOT PROT 6.7 g/dl (6.4-8.2)
== END 2017-06-17 02:01 | disposition home or self-care (01) ==
LOC: JER 23:00
PROC: 3E0233Z Introduction of Anti-inflammatory into Muscle, Percutaneous Approach (ICD-10-PCS; principal; 2017-06-16)
DX: M79.661 Pain in right lower leg (principal); I10 Essential (primary) hypertension; E11.9 Type 2 diabetes mellitus without complications; J45.909 Unspecified asthma, uncomplicated; I51.9 Heart disease, unspecified; E03.9 Hypothyroidism, unspecified
CPT/HCPCS: 36415; 73552-TC-RT; 80053; 84703; 85025; 93971-TC; 99281-25

== ENCOUNTER 2022-10-27 14:43 | Inpatient (IN) | payer OTHER ==
[2022-10-27 15:25] VITALS: BMI 26.5
[2022-10-27] MEDS ORDERED: DICYCLOMINE HCL 10 MG CAPSULE PO PRN (16:25)
[2022-10-27] MEDS ORDERED: ONDANSETRON *ODT* 4 MG TABLET SL PRN (16:25)
[2022-10-27] MEDS ORDERED: IBUPROFEN 400 MG TABLET (FP) PO PRN (16:25)
[2022-10-27] MEDS ORDERED: LOPERAMIDE HCL 2 MG CAPSULE PO PRN (16:25)
[2022-10-27] MEDS ORDERED: P-EPHED 60MG/TRIPROLIDI 2.5MG TABLET PO PRN (16:25)
[2022-10-27] MEDS ORDERED: NALOXONE HCL 0.4 MG/ML VIAL IM PRN (16:25)
[2022-10-27] MEDS ORDERED: MAG HYDROX/AL HYDROX/SIMETH 30 ML UNIT-DOSE CUP PO PRN (16:25)
[2022-10-27] MEDS ORDERED: NALOXONE HCL (KLOXXADO) 8 MG SPRAY NS PRN (16:25)
[2022-10-27] MEDS ORDERED: MAGNESIUM HYDROX 2400MG/30ML ORAL SUSPENSION 30 ML CUP PO PRN (16:25)
[2022-10-27] MEDS ORDERED: POLYETHYLENE GLYCOL (HEALTHYLAX) 3350 17 GM PACKET PO PRN (16:25)
[2022-10-27] MEDS ORDERED: ACETAMINOPHEN 325 MG TABLET (FP) PO PRN ×2 (16:25)
[2022-10-27] MEDS ORDERED: guaiFENesin 200 MG/10 ML 10 ML UNIT-DOSE CUPS PO PRN (16:25)
[2022-10-27] MEDS ORDERED: BISMUTH SUBSALICYLATE 524 MG/30 ML PO PRN (16:25)
[2022-10-27] MEDS ORDERED: BENZOCAINE/MENTHOL (CHLORASEPTIC ) LOZENGE MM PRN (16:25)
[2022-10-27] MEDS ORDERED: IBUPROFEN 600 MG TABLET (FP) PO PRN (16:25)
[2022-10-27] MEDS ORDERED: ALBUTEROL SO4 HFA INHALER IH PRN (16:28)
[2022-10-27] MEDS: ASPIRIN 81 MG CHEWABLE TABLETS PO SCH (17:52)
[2022-10-27] MEDS ORDERED: HYDROCORTISONE 0.5% TOPICAL CREAM 30 GM TUBE TP PRN (18:03)
[2022-10-27] MEDS ORDERED: COLLOIDAL OATMEAL 1 BAR EACH TP PRN (18:03)
[2022-10-27] MEDS: MELATONIN 5 MG TABLETS PO PRN (22:20)
[2022-10-27] MEDS: THIAMINE HCL 100 MG TABLET (FP) PO SCH (22:20)
[2022-10-27] MEDS: BUDESONIDE/FORMETEROL FUMARATE 80/4.5 mcg INHALER IH SCH (22:20)
[2022-10-27] MEDS: METHOCARBAMOL 500 MG TABLET PO PRN (22:20)
[2022-10-28] MEDS: LEVOTHYROXINE NA 200 MCG TABLET PO SCH (06:17)
[2022-10-28] MEDS: ASPIRIN 81 MG CHEWABLE TABLETS PO SCH (10:31)
[2022-10-28] MEDS: BUDESONIDE/FORMETEROL FUMARATE 80/4.5 mcg INHALER IH SCH ×2 (10:31→22:47)
[2022-10-28] MEDS: BUPRENORPHINE/NALOXONE 12 MG-3 MG SL FILM PACKET SL SCH (10:31)
[2022-10-28] MEDS: PRENATAL VITAMINS W/ FOLIC ACID TABLET (FP) PO SCH (10:31)
[2022-10-28] MEDS ORDERED: LORazepam 1 MG TABLET PO PRN (11:29)
[2022-10-28 13:02] LABS: HEMATOCRIT 37.3 % (32.4-45.2); HEMOGLOBIN 12.2 GM/dL (10.7-15.3); MCH 29.7 pg (25.7-33.7); MCHC 32.6 g/dl (32.0-36.0); MEAN CELL VOLUME 91.1 fl (80-96); MEAN PLT VOLUME 7.7 fl (7.5-11.1); PLATELET COUNT 309 10^3/uL (134-434); RDW 14.1 % (11.6-15.6); WHITE BLOOD COUNT 3.9 K/mm3 (4.0-10.0)
[2022-10-28 13:07] LABS: ALBUMIN 3.4 g/dl (3.4-5.0); CALCIUM 9.1 mg/dL (8.5-10.1)
[2022-10-28 13:10] LABS: CREATININE 0.8 mg/dL (0.55-1.3)
[2022-10-28 13:12] LABS: BILIRUBIN,TOTAL 0.2 mg/dL (0.2-1); TOT PROT 6.9 g/dl (6.4-8.2)
[2022-10-28] MEDS: LORazepam 2 MG TABLET PO SCH ×3 (13:23→22:48)
[2022-10-28] MEDS: hydrOXYzine PAMOATE 25 MG CAPSULE (FP) PO PRN (18:20)
[2022-10-28] MEDS: THIAMINE HCL 100 MG TABLET (FP) PO SCH (22:47)
[2022-10-28] MEDS: MELATONIN 5 MG TABLETS PO PRN (22:47)
[2022-10-28] MEDS: METHOCARBAMOL 500 MG TABLET PO PRN (22:48)
[2022-10-29] MEDS: LORazepam 2 MG TABLET PO SCH ×2 (05:29→10:37)
[2022-10-29] MEDS: LEVOTHYROXINE NA 200 MCG TABLET PO SCH (07:08)
[2022-10-29] MEDS: ASPIRIN 81 MG CHEWABLE TABLETS PO SCH (10:36)
[2022-10-29] MEDS: BUPRENORPHINE/NALOXONE 12 MG-3 MG SL FILM PACKET SL SCH (10:36)
[2022-10-29] MEDS: PRENATAL VITAMINS W/ FOLIC ACID TABLET (FP) PO SCH (10:36)
[2022-10-29] MEDS: BUDESONIDE/FORMETEROL FUMARATE 80/4.5 mcg INHALER IH SCH ×2 (10:36→22:11)
[2022-10-29] MEDS: hydrOXYzine PAMOATE 25 MG CAPSULE (FP) PO PRN (10:37)
[2022-10-29] MEDS: chlordiazePOXIDE HCL 25 MG CAPSULE PO SCH ×2 (17:07→22:09)
[2022-10-29] MEDS ORDERED: traZODone HCL 50 MG TABLET (FP) PO SCH ×2 (22:00)
[2022-10-29] MEDS: MELATONIN 5 MG TABLETS PO PRN (22:08)
[2022-10-29] MEDS: THIAMINE HCL 100 MG TABLET (FP) PO SCH (22:08)
[2022-10-29] MEDS: METHOCARBAMOL 500 MG TABLET PO PRN (22:13)
[2022-10-30] MEDS ORDERED: LORazepam 1 MG TABLET PO SCH (05:00)
[2022-10-30] MEDS: chlordiazePOXIDE HCL 25 MG CAPSULE PO SCH ×3 (06:00→10:22)
[2022-10-30] MEDS: chlordiazePOXIDE HCL 25 MG CAPSULE PO PRN ×2 (06:33→13:21)
[2022-10-30] MEDS ORDERED: LEVOTHYROXINE NA 100 MCG TABLET (FP) PO SCH (07:00)
[2022-10-30] MEDS: PRENATAL VITAMINS W/ FOLIC ACID TABLET (FP) PO SCH (10:22)
[2022-10-30] MEDS: BUDESONIDE/FORMETEROL FUMARATE 80/4.5 mcg INHALER IH SCH (10:22)
[2022-10-30] MEDS: BUPRENORPHINE/NALOXONE 12 MG-3 MG SL FILM PACKET SL SCH (10:22)
[2022-10-30] MEDS: ASPIRIN 81 MG CHEWABLE TABLETS PO SCH (10:22)
[2022-10-30 13:21] VITALS: RESP 16; TEMP 98.2
[2022-10-30] MEDS: METHOCARBAMOL 500 MG TABLET PO PRN (13:21)
[2022-10-30 17:18] VITALS: BP 103/57; PULSE 99
[2022-10-31] MEDS ORDERED: LORazepam 0.5 MG TABLET PO PRN
[2022-10-31] MEDS ORDERED: chlordiazePOXIDE HCL 10 MG CAPSULE PO SCH (05:00)
[2022-10-31] MEDS ORDERED: LORazepam 0.5 MG TABLET PO SCH (05:00)
[2022-10-31] MEDS ORDERED: chlordiazePOXIDE HCL 10 MG CAPSULE PO PRN (05:00)
[2022-11-01] MEDS ORDERED: chlordiazePOXIDE HCL 10 MG CAPSULE PO SCH (05:00)
[2022-11-01] MEDS ORDERED: LORazepam 0.5 MG TABLET PO ONE (05:00)
[2022-11-02] MEDS ORDERED: chlordiazePOXIDE HCL 10 MG CAPSULE PO ONE (05:00)
== END 2022-10-30 18:59 | disposition left against medical advice (07) | DRG 770 ==
LOC: YASAS 14:43 → Y3N 17:10
PROVIDERS: ADMIT Allergy & Immunology; ATTEND Surgery
PROC: HZ2ZZZZ Detoxification Services for Substance Abuse Treatment (ICD-10-PCS; principal; 2022-10-27)
DX: F10.230 Alcohol dependence with withdrawal, uncomplicated (principal); F14.20 Cocaine dependence, uncomplicated; F11.20 Opioid dependence, uncomplicated; F31.9 Bipolar disorder, unspecified; E03.9 Hypothyroidism, unspecified; I10 Essential (primary) hypertension; J45.909 Unspecified asthma, uncomplicated; Z28.310 Unvaccinated for COVID-19; Z28.9 Immunization not carried out for unspecified reason
CPT/HCPCS: 36415; 80053; 84443; 85027; 86780; 87811; 93005; 93010; C9803-CS; U0003; U0005

== ENCOUNTER 2022-12-15 21:58 | Inpatient (IN) | payer OTHER ==
[2022-12-15 22:50] VITALS: BMI 27.3
[2022-12-16] MEDS ORDERED: IBUPROFEN 600 MG TABLET (FP) PO PRN (01:06)
[2022-12-16] MEDS ORDERED: BENZOCAINE/MENTHOL (CHLORASEPTIC ) LOZENGE MM PRN (01:06)
[2022-12-16] MEDS ORDERED: ONDANSETRON *ODT* 4 MG TABLET SL PRN (01:06)
[2022-12-16] MEDS ORDERED: MAG HYDROX/AL HYDROX/SIMETH 30 ML UNIT-DOSE CUP PO PRN (01:06)
[2022-12-16] MEDS ORDERED: MAGNESIUM HYDROX 2400MG/30ML ORAL SUSPENSION 30 ML CUP PO PRN (01:06)
[2022-12-16] MEDS ORDERED: IBUPROFEN 400 MG TABLET (FP) PO PRN (01:06)
[2022-12-16] MEDS ORDERED: ACETAMINOPHEN 325 MG TABLET (FP) PO PRN ×2 (01:06)
[2022-12-16] MEDS ORDERED: NALOXONE HCL (KLOXXADO) 8 MG SPRAY NS PRN (01:06)
[2022-12-16] MEDS ORDERED: POLYETHYLENE GLYCOL (HEALTHYLAX) 3350 17 GM PACKET PO PRN (01:06)
[2022-12-16] MEDS ORDERED: DICYCLOMINE HCL 10 MG CAPSULE PO PRN (01:06)
[2022-12-16] MEDS ORDERED: BISMUTH SUBSALICYLATE 524 MG/30 ML PO PRN (01:06)
[2022-12-16] MEDS ORDERED: LOPERAMIDE HCL 2 MG CAPSULE PO PRN (01:06)
[2022-12-16] MEDS: METHOCARBAMOL 500 MG TABLET PO PRN (02:43)
[2022-12-16] MEDS: INSULIN SLIDING SCALE (NOVOLOG) 1 VIAL SQ SCH ×2 (06:06→17:05)
[2022-12-16] MEDS ORDERED: BUPRENORPHINE HCL 150 MCG, BUPRENORPHINE HCL 75 MCG BC PRN (09:40)
[2022-12-16] MEDS ORDERED: cloNIDine HCL 0.1 MG TABLET PO ONE (09:40)
[2022-12-16] MEDS ORDERED: BUPRENORPHINE HCL 150 MCG, BUPRENORPHINE HCL 75 MCG BC ONE (09:40)
[2022-12-16] MEDS: PRENATAL VITAMINS W/ FOLIC ACID TABLET (FP) PO SCH (10:27)
[2022-12-16] MEDS: diazePAM 5 MG TABLET PO PRN ×2 (10:28→22:44)
[2022-12-16] MEDS ORDERED: ALBUTEROL SO4 HFA INHALER IH PRN (15:37)
[2022-12-16] MEDS: metFORMIN HCL 500 MG TABLET (FP) PO SCH ×2 (16:59→17:39)
[2022-12-16] MEDS: cloNIDine HCL 0.1 MG TABLET PO PRN (17:49)
[2022-12-16] MEDS ORDERED: QUEtiapine FUMARATE 50 MG TABLET PO SCH (22:00)
[2022-12-16] MEDS: MELATONIN 5 MG TABLETS PO SCH (22:01)
[2022-12-16] MEDS: THIAMINE HCL 100 MG TABLET (FP) PO SCH (22:01)
[2022-12-16] MEDS: BUDESONIDE/FORMETEROL FUMARATE 80/4.5 mcg INHALER IH SCH (22:08)
[2022-12-17] MEDS ORDERED: BUPRENORPHINE HCL 150 MCG, BUPRENORPHINE HCL 75 MCG BC PRN
[2022-12-17] MEDS: METHOCARBAMOL 500 MG TABLET PO PRN ×3 (03:32→23:19)
[2022-12-17] MEDS: diazePAM 5 MG TABLET PO PRN ×3 (04:35→17:40)
[2022-12-17] MEDS: LEVOTHYROXINE NA 100 MCG TABLET (FP) PO SCH (06:09)
[2022-12-17] MEDS: BUPRENORPHINE HCL 150 MCG, BUPRENORPHINE HCL 75 MCG BC SCH ×2 (06:11→17:38)
[2022-12-17] MEDS: metFORMIN HCL 500 MG TABLET (FP) PO SCH ×2 (06:21→17:37)
[2022-12-17] MEDS: INSULIN SLIDING SCALE (NOVOLOG) 1 VIAL SQ SCH ×2 (06:21→17:37)
[2022-12-17] MEDS: ASPIRIN 81 MG CHEWABLE TABLETS PO SCH (10:30)
[2022-12-17] MEDS: PRENATAL VITAMINS W/ FOLIC ACID TABLET (FP) PO SCH (10:30)
[2022-12-17] MEDS: BUDESONIDE/FORMETEROL FUMARATE 80/4.5 mcg INHALER IH SCH ×2 (10:30→21:43)
[2022-12-17 11:14] LABS: HEMATOCRIT 34.5 % (32.4-45.2); HEMOGLOBIN 11.4 GM/dL (10.7-15.3); MCH 29.2 pg (25.7-33.7); MCHC 33.1 g/dl (32.0-36.0); MEAN CELL VOLUME 88.1 fl (80-96); MEAN PLT VOLUME 7.5 fl (7.5-11.1); PLATELET COUNT 256 10^3/uL (134-434); RBC 3.92 M/mm3 (3.60-5.2); RDW 14.3 % (11.6-15.6); WHITE BLOOD COUNT 3.8 K/mm3 (4.0-10.0)
[2022-12-17 11:21] LABS: CALCIUM 9.1 mg/dL (8.5-10.1)
[2022-12-17 11:25] LABS: ALBUMIN 3.2 g/dl (3.4-5.0); BLOOD UREA NITROGEN 13.1 mg/dL (7-18)
[2022-12-17 11:28] LABS: CREATININE 0.7 mg/dL (0.55-1.3)
[2022-12-17 11:30] LABS: BILIRUBIN,TOTAL 0.4 mg/dL (0.2-1); TOT PROT 6.5 g/dl (6.4-8.2)
[2022-12-17] MEDS: cloNIDine HCL 0.1 MG TABLET PO PRN ×2 (13:36→20:38)
[2022-12-17] MEDS ORDERED: COLLOIDAL OATMEAL 1 BAR EACH TP PRN (16:58)
[2022-12-17] MEDS ORDERED: diazePAM 5 MG TABLET PO ONE (20:28)
[2022-12-17] MEDS ORDERED: P-EPHED 60MG/TRIPROLIDI 2.5MG TABLET PO PRN (20:35)
[2022-12-17] MEDS ORDERED: chlordiazePOXIDE HCL 25 MG CAPSULE PO PRN (21:14)
[2022-12-17] MEDS ORDERED: chlordiazePOXIDE HCL 25 MG CAPSULE PO ONE (21:14)
[2022-12-17] MEDS: MELATONIN 5 MG TABLETS PO SCH (21:42)
[2022-12-17] MEDS: THIAMINE HCL 100 MG TABLET (FP) PO SCH (21:44)
[2022-12-17] MEDS ORDERED: QUEtiapine FUMARATE 200 MG TABLET PO SCH (22:00)
[2022-12-17] MEDS ORDERED: traZODone HCL 50 MG TABLET (FP) PO SCH (22:00)
[2022-12-17] MEDS: chlordiazePOXIDE HCL 25 MG CAPSULE PO SCH (22:30)
[2022-12-17] MEDS ORDERED: diazePAM 5 MG TABLET PO SCH (23:00)
[2022-12-18] MEDS: chlordiazePOXIDE HCL 25 MG CAPSULE PO SCH ×3 (05:58→16:44)
[2022-12-18] MEDS: BUPRENORPHINE HCL 450 MCG FILM BC SCH ×2 (06:18→17:43)
[2022-12-18] MEDS: metFORMIN HCL 500 MG TABLET (FP) PO SCH ×2 (06:24→16:41)
[2022-12-18] MEDS: INSULIN SLIDING SCALE (NOVOLOG) 1 VIAL SQ SCH ×2 (06:34→16:41)
[2022-12-18] MEDS: LEVOTHYROXINE NA 100 MCG TABLET (FP) PO SCH (06:35)
[2022-12-18] MEDS: PRENATAL VITAMINS W/ FOLIC ACID TABLET (FP) PO SCH (10:15)
[2022-12-18] MEDS: BUDESONIDE/FORMETEROL FUMARATE 80/4.5 mcg INHALER IH SCH (10:15)
[2022-12-18] MEDS: ASPIRIN 81 MG CHEWABLE TABLETS PO SCH (10:15)
[2022-12-18] MEDS: cloNIDine HCL 0.1 MG TABLET PO PRN ×2 (13:45→17:43)
[2022-12-18 18:28] VITALS: BP 124/81; PULSE 110; RESP 19; TEMP 97.7
[2022-12-18] MEDS ORDERED: GABAPENTIN 100 MG CAPSULE PO SCH (22:00)
[2022-12-19] MEDS ORDERED: chlordiazePOXIDE HCL 25 MG CAPSULE PO SCH (05:00)
[2022-12-19] MEDS ORDERED: BUPRENORPHINE/NALOXONE 4 MG/1 MG FILM PACKET SL SCH (06:00)
[2022-12-19] MEDS ORDERED: diazePAM 5 MG TABLET PO SCH (06:00)
[2022-12-20] MEDS ORDERED: chlordiazePOXIDE HCL 10 MG CAPSULE PO PRN
[2022-12-20] MEDS ORDERED: chlordiazePOXIDE HCL 10 MG CAPSULE PO SCH (05:00)
[2022-12-20] MEDS ORDERED: BUPRENORPHINE/NALOXONE 8 MG/2 MG FILM PACKET SL ONE (06:00)
[2022-12-20] MEDS ORDERED: diazePAM 5 MG TABLET PO SCH (06:00)
[2022-12-21] MEDS ORDERED: chlordiazePOXIDE HCL 10 MG CAPSULE PO ONE (05:00)
[2022-12-21] MEDS ORDERED: diazePAM 5 MG TABLET PO ONE (06:00)
== END 2022-12-18 19:10 | disposition left against medical advice (07) | DRG 770 ==
LOC: YASAS 21:58 → Y3N 12-16 01:58
PROVIDERS: ADMIT Allergy & Immunology; ATTEND Surgery
PROC: HZ2ZZZZ Detoxification Services for Substance Abuse Treatment (ICD-10-PCS; principal; 2022-12-16)
DX: F11.23 Opioid dependence with withdrawal (principal); F10.20 Alcohol dependence, uncomplicated; F14.20 Cocaine dependence, uncomplicated; F19.282 Other psychoactive substance dependence with psychoactive substance-induced sleep disorder; F19.24 Other psychoactive substance dependence with psychoactive substance-induced mood disorder; F31.9 Bipolar disorder, unspecified; I10 Essential (primary) hypertension; J45.909 Unspecified asthma, uncomplicated; E03.9 Hypothyroidism, unspecified; E11.9 Type 2 diabetes mellitus without complications; Z79.84 Long term (current) use of oral hypoglycemic drugs; Z87.891 Personal history of nicotine dependence; Z28.310 Unvaccinated for COVID-19; Z28.9 Immunization not carried out for unspecified reason
CPT/HCPCS: 36415; 80053; 81025; 82962; 85027; 86780; 87811; 93005; 93010; C9803-CS; U0003; U0005

== ENCOUNTER 2023-06-14 18:09 | Inpatient (IN) | payer OTHER ==
[2023-06-14 19:02] VITALS: BMI 26.2
[2023-06-14] MEDS ORDERED: ALBUTEROL SO4 HFA INHALER IH PRN (20:01)
[2023-06-14] MEDS ORDERED: ONDANSETRON *ODT* 4 MG TABLET SL PRN (20:08)
[2023-06-14] MEDS ORDERED: ACETAMINOPHEN 325 MG TABLET (FP) PO PRN (20:08)
[2023-06-14] MEDS ORDERED: BISMUTH SUBSALICYLATE 524 MG/30 ML PO PRN (20:08)
[2023-06-14] MEDS ORDERED: MAGNESIUM HYDROX 2400MG/30ML ORAL SUSPENSION 30 ML CUP PO PRN (20:08)
[2023-06-14] MEDS ORDERED: BENZOCAINE/MENTHOL (CHLORASEPTIC ) LOZENGE MM PRN (20:08)
[2023-06-14] MEDS ORDERED: LOPERAMIDE HCL 2 MG CAPSULE PO PRN (20:08)
[2023-06-14] MEDS ORDERED: guaiFENesin 600 MG TABLET.ER (FP) PO PRN (20:08)
[2023-06-14] MEDS ORDERED: BENZONATATE 200 MG CAPSULE PO PRN (20:08)
[2023-06-14] MEDS ORDERED: DICYCLOMINE HCL 10 MG CAPSULE PO PRN (20:08)
[2023-06-14] MEDS ORDERED: MAG HYDROX/AL HYDROX/SIMETH 30 ML UNIT-DOSE CUP PO PRN (20:08)
[2023-06-14] MEDS ORDERED: POLYETHYLENE GLYCOL (HEALTHYLAX) 3350 17 GM PACKET PO PRN (20:08)
[2023-06-14] MEDS ORDERED: NALOXONE HCL 0.4 MG/ML VIAL IM PRN (20:08)
[2023-06-14] MEDS ORDERED: IBUPROFEN 400 MG TABLET (FP) PO PRN (20:08)
[2023-06-14] MEDS ORDERED: P-EPHED 60MG/TRIPROLIDI 2.5MG TABLET PO PRN (20:08)
[2023-06-14] MEDS ORDERED: NALOXONE HCL (KLOXXADO) 8 MG SPRAY NS PRN (20:08)
[2023-06-14] MEDS ORDERED: MELATONIN 5 MG TABLETS PO SCH (22:00)
[2023-06-14] MEDS: THIAMINE HCL 100 MG TABLET (FP) PO SCH (22:43)
[2023-06-14] MEDS: IBUPROFEN 600 MG TABLET (FP) PO PRN (22:44)
[2023-06-14] MEDS: hydrOXYzine PAMOATE 25 MG CAPSULE (FP) PO PRN (22:45)
[2023-06-14] MEDS: METHOCARBAMOL 500 MG TABLET PO PRN (22:46)
[2023-06-14] MEDS: BUDESONIDE/FORMETEROL FUMARATE 80/4.5 mcg INHALER IH SCH (22:47)
[2023-06-15] MEDS ORDERED: methaDONE HCL 10 MG TABLET (FOR DETOX USE ONLY) PO ONE (00:01)
[2023-06-15] MEDS ORDERED: chlordiazePOXIDE HCL 25 MG CAPSULE PO ONE (00:01)
[2023-06-15] MEDS: chlordiazePOXIDE HCL 25 MG CAPSULE PO SCH ×4 (05:51→22:37)
[2023-06-15] MEDS: hydrOXYzine PAMOATE 25 MG CAPSULE (FP) PO PRN ×2 (05:52→17:47)
[2023-06-15] MEDS: METHOCARBAMOL 500 MG TABLET PO PRN ×2 (05:57→17:47)
[2023-06-15] MEDS: cloNIDine HCL 0.1 MG TABLET PO PRN ×3 (05:57→22:41)
[2023-06-15] MEDS: LEVOTHYROXINE NA 25 MCG TABLET (FP) PO SCH (06:11)
[2023-06-15 09:55] LABS: HEMATOCRIT 36.7 % (32.4-45.2); MCH 29.3 pg (25.7-33.7); MCHC 32.8 g/dl (32.0-36.0); MEAN CELL VOLUME 89.4 fl (80-96); MEAN PLT VOLUME 7.3 fl (7.5-11.1); PLATELET COUNT 249 10^3/uL (134-434); RBC 4.11 M/mm3 (3.60-5.2); RDW 13.8 % (11.6-15.6); WHITE BLOOD COUNT 3.5 K/mm3 (4.0-10.0)
[2023-06-15 09:58] LABS: POTASSIUM 3.9 mmol/L (3.5-5.1)
[2023-06-15 10:12] LABS: ALBUMIN 3.3 g/dl (3.4-5.0); BLOOD UREA NITROGEN 13.9 mg/dL (7-18); CALCIUM 9.1 mg/dL (8.5-10.1)
[2023-06-15 10:14] LABS: CREATININE 0.6 mg/dL (0.55-1.3)
[2023-06-15 10:16] LABS: BILIRUBIN,TOTAL 0.5 mg/dL (0.2-1); TOT PROT 6.7 g/dl (6.4-8.2)
[2023-06-15] MEDS: PRENATAL VITAMINS W/ FOLIC ACID TABLET (FP) PO SCH (10:25)
[2023-06-15] MEDS: BUDESONIDE/FORMETEROL FUMARATE 80/4.5 mcg INHALER IH SCH ×2 (10:25→22:39)
[2023-06-15] MEDS: ASPIRIN 81 MG CHEWABLE TABLETS PO SCH (10:28)
[2023-06-15] MEDS: chlordiazePOXIDE HCL 25 MG CAPSULE PO PRN (13:20)
[2023-06-15] MEDS: IBUPROFEN 600 MG TABLET (FP) PO PRN (22:37)
[2023-06-15] MEDS: THIAMINE HCL 100 MG TABLET (FP) PO SCH (22:37)
[2023-06-15] MEDS: QUEtiapine FUMARATE 200 MG TABLET PO SCH (22:39)
[2023-06-16] MEDS: chlordiazePOXIDE HCL 25 MG CAPSULE PO PRN ×2 (05:40→14:49)
[2023-06-16] MEDS: cloNIDine HCL 0.1 MG TABLET PO PRN ×3 (05:48→17:06)
[2023-06-16] MEDS: hydrOXYzine PAMOATE 25 MG CAPSULE (FP) PO PRN ×3 (05:48→22:20)
[2023-06-16] MEDS: chlordiazePOXIDE HCL 25 MG CAPSULE PO SCH ×4 (05:53→22:18)
[2023-06-16] MEDS: LEVOTHYROXINE NA 25 MCG TABLET (FP) PO SCH (06:14)
[2023-06-16] MEDS: ASPIRIN 81 MG CHEWABLE TABLETS PO SCH (10:20)
[2023-06-16] MEDS: PRENATAL VITAMINS W/ FOLIC ACID TABLET (FP) PO SCH (10:21)
[2023-06-16] MEDS: BUDESONIDE/FORMETEROL FUMARATE 80/4.5 mcg INHALER IH SCH ×2 (10:21→22:26)
[2023-06-16] MEDS: METHOCARBAMOL 500 MG TABLET PO PRN (14:43)
[2023-06-16] MEDS: QUEtiapine FUMARATE 200 MG TABLET PO SCH (22:18)
[2023-06-16] MEDS: THIAMINE HCL 100 MG TABLET (FP) PO SCH (22:19)
[2023-06-17] MEDS ORDERED: chlordiazePOXIDE HCL 10 MG CAPSULE PO PRN
[2023-06-17] MEDS: chlordiazePOXIDE HCL 10 MG CAPSULE PO SCH ×2 (05:42→10:02)
[2023-06-17] MEDS: cloNIDine HCL 0.1 MG TABLET PO PRN ×2 (05:45→10:32)
[2023-06-17] MEDS: LEVOTHYROXINE NA 25 MCG TABLET (FP) PO SCH (06:08)
[2023-06-17 08:53] VITALS: TEMP 97.7
[2023-06-17] MEDS ORDERED: methaDONE HCL 10 MG TABLET (FOR DETOX USE ONLY) PO ONE (10:00)
[2023-06-17] MEDS: ASPIRIN 81 MG CHEWABLE TABLETS PO SCH (10:02)
[2023-06-17] MEDS: PRENATAL VITAMINS W/ FOLIC ACID TABLET (FP) PO SCH (10:02)
[2023-06-17] MEDS: hydrOXYzine PAMOATE 25 MG CAPSULE (FP) PO PRN (10:02)
[2023-06-17] MEDS: METHOCARBAMOL 500 MG TABLET PO PRN (10:02)
[2023-06-17] MEDS: BUDESONIDE/FORMETEROL FUMARATE 80/4.5 mcg INHALER IH SCH (10:03)
[2023-06-17 12:37] VITALS: BP 142/81; PULSE 76; RESP 18
[2023-06-18] MEDS ORDERED: chlordiazePOXIDE HCL 10 MG CAPSULE PO SCH (05:00)
[2023-06-19] MEDS ORDERED: chlordiazePOXIDE HCL 10 MG CAPSULE PO ONE (05:00)
[2023-06-19] MEDS ORDERED: methaDONE HCL 10 MG TABLET (FOR DETOX USE ONLY) PO ONE (10:00)
== END 2023-06-17 15:03 | disposition left against medical advice (07) | DRG 770 ==
LOC: YASAS 18:09 → Y3N 20:37 → UNDOADMIN 20:37 → Y3N 21:54 → Y6N 21:54 → UNDODISIN 06-17 15:03
PROVIDERS: ADMIT Allergy & Immunology; ATTEND Allergy & Immunology
PROC: HZ2ZZZZ Detoxification Services for Substance Abuse Treatment (ICD-10-PCS; principal; 2023-06-14)
DX: F11.23 Opioid dependence with withdrawal (principal); F10.230 Alcohol dependence with withdrawal, uncomplicated; F14.10 Cocaine abuse, uncomplicated; F31.9 Bipolar disorder, unspecified; F19.280 Other psychoactive substance dependence with psychoactive substance-induced anxiety disorder; F19.24 Other psychoactive substance dependence with psychoactive substance-induced mood disorder; I10 Essential (primary) hypertension; E03.9 Hypothyroidism, unspecified; E11.9 Type 2 diabetes mellitus without complications; Z79.84 Long term (current) use of oral hypoglycemic drugs; Z28.310 Unvaccinated for COVID-19; Z28.9 Immunization not carried out for unspecified reason
CPT/HCPCS: 36415; 80053; 81025; 82962; 85027; 86780; 87635

== ENCOUNTER 2024-03-26 05:39 | Inpatient (IN) | payer OTHER ==
[2024-03-26 07:00] VITALS: BMI 26.2
[2024-03-26] MEDS ORDERED: hydrOXYzine PAMOATE 25 MG CAPSULE (FP) PO PRN (09:17)
[2024-03-26] MEDS ORDERED: LOPERAMIDE HCL 2 MG CAPSULE PO PRN (09:17)
[2024-03-26] MEDS ORDERED: BISMUTH SUBSALICYLATE 524 MG/30 ML PO PRN (09:17)
[2024-03-26] MEDS ORDERED: NALOXONE (NARCAN) HCL 4 MG/0.1 ML SPRAY NS PRN (09:17)
[2024-03-26] MEDS ORDERED: guaiFENesin 600 MG TABLET.ER (FP) PO PRN (09:17)
[2024-03-26] MEDS ORDERED: MAGNESIUM HYDROX 2400MG/30ML ORAL SUSPENSION 30 ML CUP PO PRN (09:17)
[2024-03-26] MEDS ORDERED: NALOXONE HCL 0.4 MG/ML VIAL IM PRN (09:17)
[2024-03-26] MEDS ORDERED: MAG HYDROX/AL HYDROX/SIMETH 30 ML UNIT-DOSE CUP PO PRN (09:17)
[2024-03-26] MEDS ORDERED: BENZOCAINE/MENTHOL (CHLORASEPTIC ) LOZENGE MM PRN (09:17)
[2024-03-26] MEDS ORDERED: BENZONATATE 200 MG CAPSULE PO PRN (09:17)
[2024-03-26] MEDS ORDERED: DICYCLOMINE HCL 10 MG CAPSULE PO PRN (09:17)
[2024-03-26] MEDS ORDERED: POLYETHYLENE GLYCOL (HEALTHYLAX) 3350 17 GM PACKET PO PRN (09:17)
[2024-03-26] MEDS ORDERED: IBUPROFEN 400 MG TABLET (FP) PO PRN (09:17)
[2024-03-26] MEDS ORDERED: methaDONE HCL 10 MG TABLET (FOR DETOX USE ONLY) ONE (10:00)
[2024-03-26] MEDS ORDERED: BUPRENORPHINE/NALOXONE 0.5 MG/0.125 MG FILM ONE (10:01)
[2024-03-26] MEDS ORDERED: cloNIDine HCL 0.1 MG TABLET ONE (10:01)
[2024-03-26] MEDS: cloNIDine HCL 0.1 MG TABLET PO SCH (10:02)
[2024-03-26] MEDS: BUPRENORPHINE/NALOXONE 0.5 MG/0.125 MG FILM SL ONE ×2 (10:02→22:40)
[2024-03-26] MEDS: methaDONE HCL 10 MG TABLET (FOR DETOX USE ONLY) PO ONE (10:03)
[2024-03-26] MEDS: PRENATAL VITAMINS W/ FOLIC ACID TABLET (FP) PO SCH (11:18)
[2024-03-26] MEDS ORDERED: diazePAM 5 MG TABLET ONE (11:18)
[2024-03-26] MEDS ORDERED: PRENATAL VITAMINS W/ FOLIC ACID TABLET (FP) PO ONE (11:18)
[2024-03-26] MEDS: diazePAM 5 MG TABLET PO SCH (11:19)
[2024-03-26] MEDS: METHOCARBAMOL 500 MG TABLET PO PRN (20:43)
[2024-03-26] MEDS: diazePAM 5 MG TABLET PO PRN (20:44)
[2024-03-26] MEDS: MELATONIN 5 MG TABLETS PO SCH (22:41)
[2024-03-26] MEDS: THIAMINE 100 MG TABLET PO SCH (22:41)
[2024-03-27] MEDS: BUPRENORPHINE/NALOXONE 0.5 MG/0.125 MG FILM SL SCH (09:32)
[2024-03-27] MEDS ORDERED: LEVOTHYROXINE NA 150 MCG TABLET PO ONE (09:36)
[2024-03-27] MEDS: LEVOTHYROXINE 100 MCG, LEVOTHYROXINE 75 MCG PO SCH (10:01)
[2024-03-27] MEDS: metFORMIN HCL 500 MG TABLET (FP) PO SCH (17:02)
[2024-03-27 17:15] LABS: HEMATOCRIT 37.5 % (32.4-45.2); HEMOGLOBIN 12.5 GM/dL (10.7-15.3); MCH 29.4 pg (25.7-33.7); MCHC 33.2 g/dl (32.0-36.0); MEAN CELL VOLUME 88.5 fl (80-96); MEAN PLT VOLUME 8.1 fl (7.5-11.1); PLATELET COUNT 267 10^3/uL (134-434); RBC 4.24 M/mm3 (3.60-5.2); RDW 13.6 % (11.6-15.6); WHITE BLOOD COUNT 4.6 K/mm3 (4.0-10.0)
[2024-03-27] MEDS: QUEtiapine FUMARATE 300 MG TABLET PO SCH (22:02)
[2024-03-27] MEDS: IBUPROFEN 600 MG TABLET (FP) PO PRN (23:25)
[2024-03-28] MEDS: ACETAMINOPHEN 325 MG TABLET (FP) PO PRN (01:05)
[2024-03-28] MEDS: diazePAM 5 MG TABLET PO SCH (05:50)
[2024-03-28] MEDS: LEVOTHYROXINE 100 MCG, LEVOTHYROXINE 75 MCG PO SCH (06:28)
[2024-03-28] MEDS ORDERED: LEVOTHYROXINE NA 150 MCG TABLET PO SCH (07:00)
[2024-03-28] MEDS: ONDANSETRON *ODT* 4 MG TABLET SL PRN (10:33)
[2024-03-28] MEDS: methaDONE HCL 10 MG TABLET (FOR DETOX USE ONLY) PO ONE ×3 (10:34→23:04)
[2024-03-28] MEDS: BUPRENORPHINE/NALOXONE 2 MG/0.5 MG FILM PACKET SL SCH (10:35)
[2024-03-28] MEDS: TRIMETHOBENZAMIDE HCL 200MG/2ML INJ IM PRN (11:24)
[2024-03-28] MEDS: DIPHENOXYLATE 2.5/ATROPINE.025 1 COMBO TABLET PO ONE (15:41)
[2024-03-28] MEDS ORDERED: LACTULOSE 20 GM/30 ML UDC (FOR ORAL USE ONLY) PO PRN (17:36)
[2024-03-28] MEDS: TRIMETHOBENZAMIDE HCL 200MG/2ML INJ IM ONE (17:57)
[2024-03-28] MEDS: METOPROLOL TARTRATE 50 MG TABLET (FP) PO ONE (23:06)
[2024-03-28] MEDS: amLODIPine BESYLATE 10 MG TABLET (FP) PO ONE (23:24)
[2024-03-29] MEDS: diazePAM 5 MG TABLET PO SCH (05:51)
[2024-03-29] MEDS: cloNIDine HCL 0.1 MG TABLET PO ONE (06:35)
[2024-03-29] MEDS: amLODIPine BESYLATE 10 MG TABLET (FP) PO SCH (09:35)
[2024-03-29] MEDS: LISINOPRIL 20 MG TABLET PO SCH (09:35)
[2024-03-29] MEDS ORDERED: amLODIPine BESYLATE 5 MG TABLET (FP) PO SCH (10:00)
[2024-03-29] MEDS ORDERED: BUPRENORPHINE/NALOXONE 4 MG/1 MG FILM PACKET SL SCH (10:00)
[2024-03-29] MEDS: cloNIDine HCL 0.1 MG TABLET PO SCH (13:23)
[2024-03-29] MEDS: ALBUTEROL SO4 HFA INHALER IH PRN (16:55)
[2024-03-29 21:12] VITALS: RESP 16
[2024-03-30 00:21] VITALS: TEMP 96.9
[2024-03-30 00:22] VITALS: BP 68/42; PULSE 71
[2024-03-30] MEDS ORDERED: methaDONE HCL 40 MG DISPERSABLE TABLET PO ONE (06:00)
[2024-03-30] MEDS ORDERED: diazePAM 5 MG TABLET PO ONE (06:00)
[2024-03-30] MEDS ORDERED: cloNIDine HCL 0.1 MG TABLET PO SCH ×2 (08:00)
[2024-03-30] MEDS ORDERED: BUPRENORPHINE/NALOXONE 8 MG/2 MG FILM PACKET SL SCH (10:00)
[2024-03-30] MEDS ORDERED: LISINOPRIL 10 MG TABLET PO SCH (10:00)
[2024-03-30] MEDS ORDERED: methaDONE HCL 10 MG TABLET (FOR DETOX USE ONLY) PO ONE (10:00)
[2024-03-30] MEDS ORDERED: amLODIPine BESYLATE 10 MG TABLET (FP) PO SCH (10:00)
[2024-03-31] MEDS ORDERED: methaDONE HCL 10 MG TABLET PO ONE (06:00)
[2024-03-31] MEDS ORDERED: BUPRENORPHINE/NALOXONE 8 MG/2 MG FILM PACKET SL SCH (10:00)
== END 2024-03-30 07:09 | disposition short-term general hospital (02) | DRG 773 ==
LOC: YASAS 05:39 → Y6N 10:50
PROVIDERS: ADMIT Allergy & Immunology; ATTEND Surgery
PROC: HZ2ZZZZ Detoxification Services for Substance Abuse Treatment (ICD-10-PCS; principal; 2024-03-26)
DX: F11.23 Opioid dependence with withdrawal (principal); F10.230 Alcohol dependence with withdrawal, uncomplicated; F31.81 Bipolar II disorder; F19.282 Other psychoactive substance dependence with psychoactive substance-induced sleep disorder; F19.280 Other psychoactive substance dependence with psychoactive substance-induced anxiety disorder; F25.1 Schizoaffective disorder, depressive type; I95.9 Hypotension, unspecified; I10 Essential (primary) hypertension; J45.909 Unspecified asthma, uncomplicated; E03.9 Hypothyroidism, unspecified; E11.9 Type 2 diabetes mellitus without complications; Z79.84 Long term (current) use of oral hypoglycemic drugs; R79.89 Other specified abnormal findings of blood chemistry
CPT/HCPCS: 36415; 80305; 82140; 82962; 83036; 85027; 86780; 93005; 93010; Q0162

== ENCOUNTER 2024-03-30 01:18 | Observation (INO) | payer OTHER ==
[2024-03-30] MEDS: ONDANSETRON 4 MG/2 ML VIAL IVPUSH ONE (02:03)
[2024-03-30] MEDS ORDERED: MAG HYDROX/AL HYDROX/SIMETH 30 ML UNIT-DOSE CUP ONE (02:06)
[2024-03-30] MEDS ORDERED: ACETAMINOPHEN INJECTION 100 ML IVPB ONE (02:06)
[2024-03-30] MEDS ORDERED: FAMOTIDINE 20 MG/50 ML IVPB 20 MG/50 ML MG IVPB ONE (02:06)
[2024-03-30] MEDS: MAG HYDROX/AL HYDROX/SIMETH 30 ML UNIT-DOSE CUP PO ONE (02:29)
[2024-03-30] MEDS: SODIUM CHLORIDE 0.9% 1000 ML INFUS.BAG IV ONE ×2 (02:30→04:45)
[2024-03-30] MEDS: FAMOTIDINE 20 MG/50 ML IVPB 20 MG/50 ML MG IVPB ONE (02:30)
[2024-03-30] MEDS: ACETAMINOPHEN 1000 MG/100 ML BAG IVPB ONE (02:30)
[2024-03-30 02:36] LABS: BASO % 0.1 % (0-2.0); EOS % 0.6 % (0-4.5); HEMOGLOBIN 11.7 GM/dL (10.7-15.3); LYMPH % 9.6 % (8-40); MCH 28.9 pg (25.7-33.7); MCHC 32.5 g/dl (32.0-36.0); MEAN CELL VOLUME 88.8 fl (80-96); MEAN PLT VOLUME 7.3 fl (7.5-11.1); MONO % 11.4 % (3.8-10.2); NEUT % 78.3 % (42.8-82.8); PLATELET COUNT 196 10^3/uL (134-434); RBC 4.05 M/mm3 (3.60-5.2); RDW 13.8 % (11.6-15.6); WHITE BLOOD COUNT 6.9 K/mm3 (4.0-10.0)
[2024-03-30 02:57] LABS: INR 0.94 (0.83-1.09); PROTHROMBIN TIME (PATIENT) 10.6 SEC (9.7-13.0)
[2024-03-30 03:00] LABS: ACTIVATED PTT 30.1 SECONDS (25.2-36.5)
[2024-03-30 03:01] LABS: POTASSIUM 4.4 mmol/L (3.5-5.1)
[2024-03-30 03:03] LABS: ALBUMIN 2.9 g/dl (3.4-5.0); BLOOD UREA NITROGEN 28.7 mg/dL (7-18); MAGNESIUM 1.7 mg/dL (1.8-2.4)
[2024-03-30 03:06] LABS: CREATININE 2.8 mg/dL (0.55-1.3)
[2024-03-30 03:08] LABS: BILIRUBIN,TOTAL 0.2 mg/dL (0.2-1); TOT PROT 6.2 g/dl (6.4-8.2)
[2024-03-30] MEDS: SODIUM CHLORIDE 0.9% 500 ML INFUS.BAG IV ONE ×2 (03:37→07:03)
[2024-03-30] MEDS ORDERED: MAGNESIUM 1GM/D5W - 1 GM/100 ML IVPB IVPB ONE (06:19)
[2024-03-30] MEDS: MAGNESIUM 1GM/D5W - 1 GM/100 ML IVPB IVPB ONE (06:33)
[2024-03-30 07:02] LABS: POTASSIUM 3.9 mmol/L (3.5-5.1)
[2024-03-30 07:03] LABS: CALCIUM 7.4 mg/dL (8.5-10.1)
[2024-03-30 07:04] LABS: BLOOD UREA NITROGEN 26.3 mg/dL (7-18)
[2024-03-30] MEDS ORDERED: LEVOTHYROXINE NA 150 MCG TABLET PO ONE (07:07)
[2024-03-30 07:08] LABS: CREATININE 2.1 mg/dL (0.55-1.3)
[2024-03-30] MEDS ORDERED: MAGNESIUM SULFATE IN WATER 2 GM/50 ML IVPB IVPB ONE (07:34)
[2024-03-30] MEDS: MAGNESIUM SULF 50% (8.12 MEQ/2 ML-1 GM VIAL) IVPB ONE (07:35)
[2024-03-30] MEDS ORDERED: LEVOTHYROXINE NA 100 MCG TABLET (FP) ONE (07:35)
[2024-03-30] MEDS ORDERED: LEVOTHYROXINE NA 25 MCG TABLET (FP) ONE (07:35)
[2024-03-30] MEDS ORDERED: LEVOTHYROXINE NA 50 MCG TABLET (FP) ONE (07:35)
[2024-03-30] MEDS ORDERED: MAGNESIUM SULF 50% (8.12 MEQ/2 ML-1 GM VIAL) ONE (07:37)
[2024-03-30] MEDS: LACTATED RINGERS SOLUTION 1000 ML INFUS.BAG IV ONE (07:40)
[2024-03-30 07:47] LABS: PHOSPHOROUS 4.4 mg/dL (2.5-4.9)
[2024-03-30] MEDS: LEVOTHYROXINE 100 MCG, LEVOTHYROXINE 75 MCG PO ONE (07:50)
[2024-03-30] MEDS ORDERED: methaDONE HCL 10 MG TABLET ONE (08:34)
[2024-03-30] MEDS: methaDONE HCL 40 MG DISPERSABLE TABLET PO ONE (08:35)
[2024-03-30] MEDS ORDERED: TRIMETHOBENZAMIDE HCL 200MG/2ML INJ IM PRN (09:07)
[2024-03-30] MEDS: methaDONE HCL 10 MG TABLET PO ONE (09:54)
[2024-03-30] MEDS ORDERED: ALBUTEROL SO4 HFA INHALER IH PRN (10:00)
[2024-03-30 10:07] LABS: PH,URINE 5.5 (5.0-8.0); URINE APPEARANCE CLEAR; URINE BILIRUBIN NEGATIVE (NEGATIVE); URINE COLOR YELLOW; URINE GLUCOSE (UA) NEGATIVE (NEGATIVE); URINE KETONE NEGATIVE (NEGATIVE)
[2024-03-30 10:08] LABS: URINE LEUK ESTERASE TRACE (NEGATIVE); URINE NITRITE NEGATIVE (NEGATIVE); URINE PROTEIN TRACE (NEGATIVE); URINE UROBILINOGEN 0.2 mg/dL (0.2-1.0)
[2024-03-30] MEDS: BUPRENORPHINE/NALOXONE 2 MG/0.5 MG FILM PACKET SL ONE (10:29)
[2024-03-30] MEDS: FOLIC ACID 1 MG TABLET (FP) PO SCH (10:29)
[2024-03-30 15:12] VITALS: BMI 26.4
[2024-03-30] MEDS: busPIRone HCL 5 MG TABLET PO SCH (15:24)
[2024-03-30] MEDS: HEPARIN NA (PORCINE) 5,000 UNITS/ML 1ML VIAL SQ SCH (15:24)
[2024-03-30] MEDS ORDERED: LORazepam 2 MG TABLET PO PRN (16:26)
[2024-03-30] MEDS: LORazepam 2 MG TABLET PO ONE (17:15)
[2024-03-30] MEDS: LORazepam 1 MG TABLET PO PRN (21:36)
[2024-03-30] MEDS: THIAMINE 100 MG TABLET PO SCH (21:37)
[2024-03-30] MEDS ORDERED: traZODone HCL 50 MG TABLET (FP) PO SCH (22:00)
[2024-03-31] MEDS: LEVOTHYROXINE 75 MCG, LEVOTHYROXINE 100 MCG PO SCH (06:01)
[2024-03-31 08:11] LABS: POTASSIUM 3.8 mmol/L (3.5-5.1)
[2024-03-31 08:15] LABS: CALCIUM 8.5 mg/dL (8.5-10.1)
[2024-03-31 08:16] LABS: BLOOD UREA NITROGEN 13.3 mg/dL (7-18); MAGNESIUM 2.4 mg/dL (1.8-2.4)
[2024-03-31 08:17] LABS: ALBUMIN 2.9 g/dl (3.4-5.0)
[2024-03-31 08:19] LABS: PHOSPHOROUS 3.9 mg/dL (2.5-4.9)
[2024-03-31 08:20] LABS: BILIRUBIN,TOTAL 0.2 mg/dL (0.2-1); TOT PROT 5.7 g/dl (6.4-8.2)
[2024-03-31 08:27] LABS: HEMATOCRIT 30.9 % (32.4-45.2); MCH 28.5 pg (25.7-33.7); MCHC 32.2 g/dl (32.0-36.0); MEAN CELL VOLUME 88.5 fl (80-96); MEAN PLT VOLUME 8.2 fl (7.5-11.1); PLATELET COUNT 175 10^3/uL (134-434); RBC 3.49 M/mm3 (3.60-5.2); RDW 13.3 % (11.6-15.6); WHITE BLOOD COUNT 3.3 K/mm3 (4.0-10.0)
[2024-03-31 09:51] LABS: ANISOCYTOSIS 1+; MACROCYTOSIS 0
[2024-03-31] MEDS ORDERED: LEVOTHYROXINE NA 150 MCG TABLET PO SCH (10:00)
[2024-03-31] MEDS: methaDONE HCL 10 MG TABLET PO ONE (10:28)
[2024-03-31] MEDS: BUPRENORPHINE/NALOXONE 2 MG/0.5 MG FILM PACKET SL ONE (11:45)
[2024-03-31] MEDS: ENOXAPARIN NA (PORCINE) 40 MG/0.4 ML DISP.SYRIN SQ SCH (14:17)
[2024-04-01 06:08] VITALS: TEMP 98.1
[2024-04-01] MEDS: methaDONE HCL 10 MG TABLET PO ONE (06:14)
[2024-04-01] MEDS ORDERED: BUPRENORPHINE/NALOXONE 2 MG/0.5 MG FILM PACKET SL ONE (07:15)
[2024-04-01] MEDS: ALBUTEROL SO4 HFA INHALER IH PRN (09:53)
[2024-04-01] MEDS: BUPRENORPHINE/NALOXONE 2 MG/0.5 MG FILM PACKET SL ONE ×2 (11:04→14:02)
[2024-04-01] MEDS: POTASSIUM CHLORIDE TABS 20 MEQ TABLET.ER (FP) PO ONE (11:43)
[2024-04-01 16:25] VITALS: BP 133/79; PULSE 90; RESP 18
== END 2024-04-01 14:50 | disposition other institution (70) ==
LOC: JER 01:18 → JERBED 04:27 → UNDOADMOB 04:27 → JERBED 04:28 → OBSVTOIN 04:28 → UNDOADMOB 04:28 → INTOOBSV 04:28 → JERBED 09:19 → UNDOADMOB 09:19 → J4W 09:23 → JERBED 09:23 → J4W 09:23
PROVIDERS: ADMIT Internal Medicine; ATTEND Internal Medicine
PROC: 3E033NZ Introduction of Analgesics, Hypnotics, Sedatives into Peripheral Vein, Percutaneous Approach (ICD-10-PCS; principal; 2024-03-30)
PROC: 3E033GC Introduction of Other Therapeutic Substance into Peripheral Vein, Percutaneous Approach (ICD-10-PCS; 2024-03-30)
PROC: 3E023GC Introduction of Other Therapeutic Substance into Muscle, Percutaneous Approach (ICD-10-PCS; 2024-03-30)
PROC: 3E0337Z Introduction of Electrolytic and Water Balance Substance into Peripheral Vein, Percutaneous Approach (ICD-10-PCS; 2024-03-30)
DX: N17.9 Acute kidney failure, unspecified (principal); E86.0 Dehydration; E03.9 Hypothyroidism, unspecified; I42.0 Dilated cardiomyopathy; F31.9 Bipolar disorder, unspecified; J45.909 Unspecified asthma, uncomplicated; E11.9 Type 2 diabetes mellitus without complications; F19.90 Other psychoactive substance use, unspecified, uncomplicated
CPT/HCPCS: 36415; 71045-TC-FY; 80048; 80053; 81003; 81015; 82962; 83735; 84100; 84484; 85025; 85610; 85730; 87086; 93005; 93010; 93308; 96365; 96367; 96372; 96375; 96376; 99285-25; G0378; J0131; J1644

== ENCOUNTER 2024-08-03 21:02 | Inpatient (IN) | payer OTHER ==
[2024-08-03 21:57] VITALS: BMI 26.2
[2024-08-03] MEDS ORDERED: POLYETHYLENE GLYCOL (HEALTHYLAX) 3350 17 GM PACKET PO PRN (22:56)
[2024-08-03] MEDS ORDERED: MAGNESIUM HYDROX 2400MG/30ML ORAL SUSPENSION 30 ML CUP PO PRN (22:56)
[2024-08-03] MEDS ORDERED: BENZOCAINE/MENTHOL (CHLORASEPTIC ) LOZENGE MM PRN (22:56)
[2024-08-03] MEDS ORDERED: DICYCLOMINE HCL 10 MG CAPSULE PO PRN (22:56)
[2024-08-03] MEDS ORDERED: NALOXONE (NARCAN) HCL 4 MG/0.1 ML SPRAY NS PRN (22:56)
[2024-08-03] MEDS ORDERED: BISMUTH SUBSALICYLATE 524 MG/30 ML PO PRN (22:56)
[2024-08-03] MEDS ORDERED: METHOCARBAMOL 500 MG TABLET PO PRN (22:56)
[2024-08-03] MEDS ORDERED: IBUPROFEN 400 MG TABLET (FP) PO PRN (22:56)
[2024-08-03] MEDS ORDERED: IBUPROFEN 600 MG TABLET (FP) PO PRN (22:56)
[2024-08-03] MEDS ORDERED: NALOXONE (NYS OPIOID OVERDOSE PROGRAM) 4 MG/0.1 ML SPRAY NS PRN (22:56)
[2024-08-03] MEDS ORDERED: MAG HYDROX/AL HYDROX/SIMETH 30 ML UNIT-DOSE CUP PO PRN (22:56)
[2024-08-03] MEDS ORDERED: BENZONATATE 200 MG CAPSULE PO PRN (22:56)
[2024-08-03] MEDS ORDERED: LOPERAMIDE HCL 2 MG CAPSULE PO PRN (22:56)
[2024-08-03] MEDS ORDERED: guaiFENesin 600 MG TABLET.ER (FP) PO PRN (22:56)
[2024-08-03] MEDS ORDERED: ACETAMINOPHEN 325 MG TABLET (FP) PO PRN (22:56)
[2024-08-04] MEDS ORDERED: cloNIDine HCL 0.1 MG TABLET ONE ×2 (07:47→10:33)
[2024-08-04] MEDS: cloNIDine HCL 0.1 MG TABLET PO ONE ×2 (07:51→10:33)
[2024-08-04] MEDS ORDERED: PRENATAL VITAMINS W/ FOLIC ACID TABLET (FP) PO ONE (09:14)
[2024-08-04] MEDS ORDERED: diazePAM 5 MG TABLET PO PRN (09:57)
[2024-08-04] MEDS: PRENATAL VITAMINS W/ FOLIC ACID TABLET (FP) PO SCH (10:15)
[2024-08-04] MEDS ORDERED: BUPRENORPHINE HCL 150 MCG FILM BC ONE (10:16)
[2024-08-04] MEDS ORDERED: BUPRENORPHINE HCL 75 MCG FILM BC ONE (10:17)
[2024-08-04] MEDS: BUPRENORPHINE HCL 150 MCG, BUPRENORPHINE HCL 75 MCG BC ONE (10:17)
[2024-08-04] MEDS ORDERED: chlordiazePOXIDE HCL 25 MG CAPSULE ONE (10:32)
[2024-08-04] MEDS: chlordiazePOXIDE HCL 25 MG CAPSULE PO SCH (10:34)
[2024-08-04] MEDS: chlordiazePOXIDE HCL 25 MG CAPSULE PO ONE (10:34)
[2024-08-04] MEDS ORDERED: ALBUTEROL SO4 HFA INHALER IH PRN (10:39)
[2024-08-04] MEDS ORDERED: LEVOTHYROXINE NA 150 MCG TABLET PO SCH (11:00)
[2024-08-04] MEDS: LEVOTHYROXINE 100 MCG, LEVOTHYROXINE 75 MCG PO SCH (11:23)
[2024-08-04] MEDS: AMOX TR/POT CLAV 500MG/125MG TABLETS (FP) PO SCH (12:28)
[2024-08-04] MEDS: amLODIPine BESYLATE 5 MG TABLET (FP) PO SCH (12:29)
[2024-08-04] MEDS: FLUTICASONE PROP 0.05% 16 GM NASAL SPRAY NS SCH (12:30)
[2024-08-04 12:32] LABS: HEMATOCRIT 36.7 % (32.4-45.2); HEMOGLOBIN 12.1 GM/dL (10.7-15.3); MCH 29.1 pg (25.7-33.7); MCHC 32.9 g/dl (32.0-36.0); MEAN CELL VOLUME 88.5 fl (80-96); MEAN PLT VOLUME 7.3 fl (7.5-11.1); PLATELET COUNT 287 10^3/uL (134-434); RBC 4.15 M/mm3 (3.60-5.2); RDW 13.7 % (11.6-15.6); WHITE BLOOD COUNT 2.7 K/mm3 (4.0-10.0)
[2024-08-04 13:33] LABS: CHLORIDE 105 mmol/L (98-107); POTASSIUM 3.9 mmol/L (3.5-5.1); SODIUM 141 mmol/L (136-145)
[2024-08-04 13:35] LABS: CALCIUM 9.5 mg/dL (8.5-10.1)
[2024-08-04 13:36] LABS: ALBUMIN 3.6 g/dl (3.4-5.0); ANION GAP 8 mmol/L (4-13); BLOOD UREA NITROGEN 12.7 mg/dL (7-18); CO2 28 mmol/L (21-32); GLUCOSE,RANDOM 86 mg/dL (74-106)
[2024-08-04 13:39] LABS: CREATININE 0.7 mg/dL (0.55-1.3); SGOT/AST 39 U/L (15-37); SGPT/ALT 35 U/L (13-61)
[2024-08-04] MEDS: hydrOXYzine PAMOATE 25 MG CAPSULE (FP) PO PRN (13:39)
[2024-08-04 13:40] LABS: BILIRUBIN,TOTAL 0.6 mg/dL (0.2-1); TOT PROT 7.3 g/dl (6.4-8.2)
[2024-08-04] MEDS: BUPRENORPHINE HCL 150 MCG, BUPRENORPHINE HCL 75 MCG BC PRN (13:40)
[2024-08-04 13:42] LABS: ALK PHOS 92 U/L (45-117)
[2024-08-04] MEDS: chlordiazePOXIDE HCL 25 MG CAPSULE PO PRN (13:43)
[2024-08-04] MEDS: ONDANSETRON *ODT* 4 MG TABLET SL PRN (15:43)
[2024-08-04] MEDS: METHOCARBAMOL 500 MG TABLET PO PRN (16:02)
[2024-08-04 17:12] VITALS: BP 130/67; PULSE 73; RESP 16; TEMP 97.7
[2024-08-04] MEDS: cloNIDine HCL 0.1 MG TABLET PO PRN (17:17)
[2024-08-04] MEDS ORDERED: traZODone HCL 100 MG TABLET (FP) PO SCH (22:00)
[2024-08-04] MEDS ORDERED: THIAMINE 100 MG TABLET PO SCH (22:00)
[2024-08-04] MEDS ORDERED: MELATONIN 5 MG TABLETS PO SCH (22:00)
[2024-08-05] MEDS ORDERED: BUPRENORPHINE HCL 150 MCG, BUPRENORPHINE HCL 75 MCG BC PRN
[2024-08-05] MEDS ORDERED: BUPRENORPHINE HCL 150 MCG, BUPRENORPHINE HCL 75 MCG BC SCH (06:00)
[2024-08-06] MEDS ORDERED: BUPRENORPHINE HCL 450 MCG FILM BC PRN
[2024-08-06] MEDS ORDERED: chlordiazePOXIDE HCL 25 MG CAPSULE PO SCH (05:00)
[2024-08-06] MEDS ORDERED: BUPRENORPHINE HCL 450 MCG FILM BC SCH (06:00)
[2024-08-07] MEDS ORDERED: chlordiazePOXIDE HCL 10 MG CAPSULE PO PRN
[2024-08-07] MEDS ORDERED: chlordiazePOXIDE HCL 10 MG CAPSULE PO SCH (05:00)
[2024-08-07] MEDS ORDERED: BUPRENORPHINE/NALOXONE 4 MG/1 MG FILM PACKET SL SCH (06:00)
[2024-08-08] MEDS ORDERED: chlordiazePOXIDE HCL 10 MG CAPSULE PO SCH (05:00)
[2024-08-08] MEDS ORDERED: BUPRENORPHINE/NALOXONE 8 MG/2 MG FILM PACKET SL ONE (06:00)
[2024-08-09] MEDS ORDERED: chlordiazePOXIDE HCL 10 MG CAPSULE PO ONE (05:00)
== END 2024-08-04 18:01 | disposition left against medical advice (07) | DRG 770 ==
LOC: YASAS 21:02 → Y3N 08-04 10:29
PROVIDERS: ADMIT Allergy & Immunology; ATTEND Surgery
PROC: HZ2ZZZZ Detoxification Services for Substance Abuse Treatment (ICD-10-PCS; principal; 2024-08-04)
DX: F11.23 Opioid dependence with withdrawal (principal); F10.230 Alcohol dependence with withdrawal, uncomplicated; F31.9 Bipolar disorder, unspecified; F19.282 Other psychoactive substance dependence with psychoactive substance-induced sleep disorder; F19.280 Other psychoactive substance dependence with psychoactive substance-induced anxiety disorder; F19.24 Other psychoactive substance dependence with psychoactive substance-induced mood disorder; I25.10 Atherosclerotic heart disease of native coronary artery without angina pectoris; I10 Essential (primary) hypertension; E03.9 Hypothyroidism, unspecified; E11.9 Type 2 diabetes mellitus without complications
CPT/HCPCS: 36415; 80053; 80305; 80307; 81025; 82962; 85027; 86780; 93005; 93010; Q0162

== ENCOUNTER 2024-08-07 02:30 | Inpatient (IN) | payer OTHER ==
[2024-08-07 03:57] VITALS: BMI 26.5
[2024-08-07] MEDS ORDERED: DICYCLOMINE HCL 10 MG CAPSULE PO PRN (04:33)
[2024-08-07] MEDS ORDERED: MAGNESIUM HYDROX 2400MG/30ML ORAL SUSPENSION 30 ML CUP PO PRN (04:33)
[2024-08-07] MEDS ORDERED: LOPERAMIDE HCL 2 MG CAPSULE PO PRN (04:33)
[2024-08-07] MEDS ORDERED: BENZONATATE 200 MG CAPSULE PO PRN (04:33)
[2024-08-07] MEDS ORDERED: NALOXONE (NARCAN) HCL 4 MG/0.1 ML SPRAY NS PRN (04:33)
[2024-08-07] MEDS ORDERED: guaiFENesin 600 MG TABLET.ER (FP) PO PRN (04:33)
[2024-08-07] MEDS ORDERED: BENZOCAINE/MENTHOL (CHLORASEPTIC ) LOZENGE MM PRN (04:33)
[2024-08-07] MEDS ORDERED: IBUPROFEN 600 MG TABLET (FP) PO PRN (04:33)
[2024-08-07] MEDS ORDERED: POLYETHYLENE GLYCOL (HEALTHYLAX) 3350 17 GM PACKET PO PRN (04:33)
[2024-08-07] MEDS ORDERED: ACETAMINOPHEN 325 MG TABLET (FP) PO PRN (04:33)
[2024-08-07] MEDS ORDERED: BISMUTH SUBSALICYLATE 524 MG/30 ML PO PRN (04:33)
[2024-08-07] MEDS ORDERED: MAG HYDROX/AL HYDROX/SIMETH 30 ML UNIT-DOSE CUP PO PRN (04:33)
[2024-08-07] MEDS ORDERED: diazePAM 5 MG TABLET ONE (08:40)
[2024-08-07] MEDS ORDERED: BUPRENORPHINE/NALOXONE 0.5 MG/0.125 MG FILM ONE (08:41)
[2024-08-07] MEDS ORDERED: methaDONE HCL 10 MG TABLET (FOR DETOX USE ONLY) ONE (08:41)
[2024-08-07] MEDS ORDERED: ONDANSETRON *ODT* 4 MG TABLET ONE (08:55)
[2024-08-07] MEDS: ONDANSETRON *ODT* 4 MG TABLET SL PRN (09:00)
[2024-08-07] MEDS: diazePAM 5 MG TABLET PO ONE (09:05)
[2024-08-07] MEDS: methaDONE HCL 10 MG TABLET (FOR DETOX USE ONLY) PO ONE (09:06)
[2024-08-07] MEDS: BUPRENORPHINE/NALOXONE 0.5 MG/0.125 MG FILM SL ONE (09:06)
[2024-08-07] MEDS ORDERED: LEVOTHYROXINE NA 150 MCG TABLET PO SCH (10:00)
[2024-08-07] MEDS ORDERED: PRENATAL VITAMINS W/ FOLIC ACID TABLET (FP) PO ONE (10:27)
[2024-08-07] MEDS ORDERED: amLODIPine BESYLATE 5 MG TABLET (FP) ONE (10:27)
[2024-08-07] MEDS: amLODIPine BESYLATE 5 MG TABLET (FP) PO SCH (10:28)
[2024-08-07] MEDS: PRENATAL VITAMINS W/ FOLIC ACID TABLET (FP) PO SCH (10:28)
[2024-08-07] MEDS: LEVOTHYROXINE 75 MCG, LEVOTHYROXINE 100 MCG PO SCH (10:29)
[2024-08-07] MEDS: cloNIDine HCL 0.1 MG TABLET PO SCH (10:35)
[2024-08-07] MEDS: diazePAM 5 MG TABLET PO SCH (11:36)
[2024-08-07] MEDS: diazePAM 5 MG TABLET PO PRN (13:14)
[2024-08-07] MEDS: hydrOXYzine PAMOATE 25 MG CAPSULE (FP) PO PRN (17:39)
[2024-08-07] MEDS: THIAMINE 100 MG TABLET PO SCH (21:45)
[2024-08-07] MEDS: MELATONIN 5 MG TABLETS PO SCH (21:45)
[2024-08-07] MEDS: traZODone HCL 100 MG TABLET (FP) PO SCH (22:20)
[2024-08-07] MEDS ORDERED: BUPRENORPHINE/NALOXONE 0.5 MG/0.125 MG FILM SL ONE (23:00)
[2024-08-08] MEDS: BUPRENORPHINE/NALOXONE 0.5 MG/0.125 MG FILM SL SCH (10:50)
[2024-08-09] MEDS: diazePAM 5 MG TABLET PO SCH (06:35)
[2024-08-09] MEDS: methaDONE HCL 10 MG TABLET (FOR DETOX USE ONLY) PO ONE (10:29)
[2024-08-09] MEDS: BUPRENORPHINE/NALOXONE 2 MG/0.5 MG FILM PACKET SL SCH (10:29)
[2024-08-09] MEDS: ACAMPROSATE CALCIUM 333 MG TABLET.DR PO SCH (13:49)
[2024-08-09] MEDS: ALBUTEROL SO4 HFA INHALER IH PRN (13:53)
[2024-08-09] MEDS: IBUPROFEN 400 MG TABLET (FP) PO PRN (17:22)
[2024-08-09] MEDS: ALBUTEROL SO4 0.083% IH SOL 2.5 MG/3 ML VIAL.NEB. NEB PRN (17:27)
[2024-08-10] MEDS: diazePAM 5 MG TABLET PO SCH (05:54)
[2024-08-10] MEDS: BUPRENORPHINE/NALOXONE 4 MG/1 MG FILM PACKET SL SCH (09:45)
[2024-08-10] MEDS: cloNIDine HCL 0.1 MG TABLET PO SCH (11:34)
[2024-08-11] MEDS: diazePAM 5 MG TABLET PO ONE (06:28)
[2024-08-11] MEDS: methaDONE HCL 10 MG TABLET (FOR DETOX USE ONLY) PO ONE (09:27)
[2024-08-11] MEDS: BUPRENORPHINE/NALOXONE 8 MG/2 MG FILM PACKET SL SCH (09:28)
[2024-08-11 09:44] LABS: HEMATOCRIT 34.7 % (32.4-45.2); HEMOGLOBIN 11.2 GM/dL (10.7-15.3); MCH 29.1 pg (25.7-33.7); MCHC 32.2 g/dl (32.0-36.0); MEAN CELL VOLUME 90.4 fl (80-96); MEAN PLT VOLUME 7.8 fl (7.5-11.1); PLATELET COUNT 265 10^3/uL (134-434); RBC 3.83 M/mm3 (3.60-5.2); RDW 13.9 % (11.6-15.6); WHITE BLOOD COUNT 3.9 K/mm3 (4.0-10.0)
[2024-08-12] MEDS ORDERED: LEVOTHYROXINE NA 100 MCG TABLET (FP) ONE (07:25)
[2024-08-12] MEDS: BUPRENORPHINE/NALOXONE 8 MG/2 MG FILM PACKET SL SCH (09:59)
[2024-08-13 06:31] VITALS: RESP 18
[2024-08-13] MEDS: BUPRENORPHINE/NALOXONE 8 MG/2 MG FILM PACKET SL ONE (07:31)
[2024-08-13 09:31] VITALS: BP 103/70; PULSE 89; TEMP 97.6
[2024-08-13] MEDS: NALOXONE (NYS OPIOID OVERDOSE PROGRAM) 4 MG/0.1 ML SPRAY NS PRN (09:53)
== END 2024-08-13 10:42 | disposition home or self-care (01) | DRG 773 ==
LOC: YASAS 02:30 → Y6N 09:12
PROVIDERS: ADMIT Allergy & Immunology; ATTEND Surgery
PROC: HZ2ZZZZ Detoxification Services for Substance Abuse Treatment (ICD-10-PCS; principal; 2024-08-07)
DX: F11.23 Opioid dependence with withdrawal (principal); F10.230 Alcohol dependence with withdrawal, uncomplicated; F14.20 Cocaine dependence, uncomplicated; F16.20 Hallucinogen dependence, uncomplicated; F25.1 Schizoaffective disorder, depressive type; F19.282 Other psychoactive substance dependence with psychoactive substance-induced sleep disorder; F19.24 Other psychoactive substance dependence with psychoactive substance-induced mood disorder; I25.10 Atherosclerotic heart disease of native coronary artery without angina pectoris; I10 Essential (primary) hypertension; I42.9 Cardiomyopathy, unspecified; E03.9 Hypothyroidism, unspecified; E11.9 Type 2 diabetes mellitus without complications; Z79.84 Long term (current) use of oral hypoglycemic drugs; Z87.891 Personal history of nicotine dependence
CPT/HCPCS: 36415; 80305; 82962; 85027; 93005; 93010; Q0162